=== PATIENT | male | born 1985 | race Caucasian/White ===

== ENCOUNTER 2016-09-22 13:02 | Emergency (ER) | payer OTHER ==
[2016-09-22 13:22] VITALS: BP 127/76
--- NOTE | 2016-09-22 13:46 | UC ---
Knee Pain HPI - HPI Summary HPI Summary: 31 yo twisted knee yesterday knee luis felipe pain with extension hx of intermittent knee pains - History of Current Complaint Chief Complaint: UCLowerExtremity Stated Complaint: KNEE INJURY Time Seen by Provider: 09/22/16 13:14 Hx Obtained From: Patient Onset/Duration: Sudden Onset, Lasting Days Severity Initially: Moderate Severity Currently: Moderate Location Of Injury: right knee Pain Intensity: 5 Pain Scale Used: 0-10 Numeric Character: Aching, Throbbing Aggravating Factor(s): Weight Bearing Alleviating Factor(s): Rest Associated Signs And Symptoms: Positive: Swelling Able to Bear Weight: Yes - Allergies/Home Medications Allergies/Adverse Reactions: Allergies Allergy/AdvReac Type Severity Reaction Status Date / Time Codeine Allergy Intermediate See Comment Verified 12/30/14 14:06 Penicillins Allergy Intermediate Vomiting Verified 12/30/14 14:07 Amoxicillin Allergy Mild Vomiting Verified 12/30/14 14:06 Home Medications: Home Medications Ibuprofen [Advil] 09/22/16 [History] PMH/Surg Hx/FS Hx/Imm Hx Previously Healthy: Yes Endocrine History Of: Denies: Diabetes, Thyroid Disease Cardiovascular History Of: Denies: Cardiac Disorders, Hypertension, Congestive Heart Failure Respiratory History Of: Reports: Asthma Denies: COPD GI/ History Of: Denies: Ulcer, Renal Disease - Surgical History Surgical History: Yes Surgery Procedure, Year, and Place: Edentulous, all teeth removed - Family History Known Family History: Positive: Diabetes, Respiratory Disease - copd/aSTHMA - Social History Alcohol Use: Rare Substance Use Type: None Substance Use Comment - Amount & Last Used: Pt routinely takes unprescribed VIagra recreationally Smoking Status (MU): Heavy Every Day Tobacco Smoker Type: Cigarettes Amount Used/How Often: 1 ppd Length of Time of Smoking/Using Tobacco: 16 years Have You Smoked in the Last Year: Yes Household Exposure Type: Cigarettes Review of Systems Constitutional: Negative Skin: Negative Eyes: Negative ENT: Negative Respiratory: Negative Cardiovascular: Negative Gastrointestinal: Negative Genitourinary: Negative Motor: Negative Neurovascular: Negative Musculoskeletal: Arthralgia Neurological: Negative Psychological: Negative All Other Systems Reviewed And Are Negative: Yes Physical Exam Triage Information Reviewed: Yes Appearance: Well-Appearing, No Pain Distress, Well-Nourished Vital Signs: Initial Vital Signs Temp 99.1 F 09/22/16 13:16 Pulse 95 01/05/17 13:16 Resp 18 09/22/16 13:16 BP 127/76 09/22/16 13:16 Pulse Ox 99 09/22/16 13:16 Vital Signs Reviewed: Yes Eyes: Positive: Conjunctiva Clear ENT: Positive: Hearing grossly normal. Negative: Nasal congestion, Nasal drainage, Trismus Dental: Positive: Other: - edentulous Neck: Positive: Supple, Nontender, No Lymphadenopathy Respiratory: Positive: Lungs clear, Normal breath sounds, No respiratory distress, No accessory muscle use Cardiovascular: Positive: RRR, No Murmur Musculoskeletal: Positive: Other: - see image Neurological Exam: Normal Neurological: Positive: Alert Psychological Exam: Normal Skin Exam: Normal Knee Pain Course/Dx - Differential Dx/Diagnosis Provider Diagnoses: right knee sprain Discharge - Discharge Plan Condition: Stable Disposition: HOME Patient Education Materials: Knee Sprain (ED) Referrals: Christophe Acosta MD [Medical Doctor] - 1 Week (call and make an appt) Additional Instructions: rest elevate ice knee immobilizer when wt bearing Images Front/Back of Body, Lg ([place]): 1 - medial and lateral joint line pain, no effusion, stable joint, pain with full extension, antalgic gait
--- NOTE | 2016-09-22 13:58 | RAD ---
INDICATION: Right knee injury. TECHNIQUE: 4 views of the right knee were obtained. FINDINGS: The bones are in normal alignment. No joint effusion or fracture is seen. Joint spaces appear maintained. IMPRESSION: NO EVIDENCE FOR FRACTURE.
== END 2016-09-22 14:10 | disposition home or self-care (01) ==
LOC: UCEAST 13:02
DX: S83.91XA Sprain of unspecified site of right knee, initial encounter (principal); X50.1XXA Overexertion from prolonged static or awkward postures, initial encounter; Y93.9 Activity, unspecified; Y92.9 Unspecified place or not applicable; Z88.6 Allergy status to analgesic agent; Z88.0 Allergy status to penicillin; F17.210 Nicotine dependence, cigarettes, uncomplicated
CPT/HCPCS: 99212; G0463

== ENCOUNTER → 2016-10-07 11:10 | Day surgery (SDC) | payer OTHER ==
[~2016-10-07 11:10] MED LIST: Buffered Lidocaine 1% SYR 3ML* 3 ML/SYR SYRINGE INTRADERM ONE; Buffered Lidocaine 1% SYR 3ML* 3 ML/SYR SYRINGE ONE; Bupivacaine 0.5% W/EPI SDV* 30 ML VIAL ONE; Clindamycin 900 MG IVPREMIX(* 900 MG/50 ML SDV IV ONE; Dexamethasone TAB* 4 MG ONE; Dexamethasone TAB* 4 MG PO ONE; EPINEPHrine AMP 1 MG/ML ONE; Famotidine IV* 10 MG/ML 2 ML (20 mg) IV ONE; Famotidine IV* 10 MG/ML 2 ML (20 mg) ONE; KETAMINE HCL* 50 MG/ML 10 ML VIAL ONE; Ketorolac INJ* 30 MG/ML 1 ML VIAL ONE; Lidocaine 2% PF* 10 ML AMP ONE; Midazolam* 1 MG/ML 5 ML VIAL (5 MG) ONE; Morphine INJ* 2 MG/ML 1 ML CARPUJECT IV PRN; Ondansetron INJ* 2 MG/ML VIAL ONE; PROCHLORPERAZINE INJ 5 MG/ML 2 ML VIAL IV PRN; PROCHLORPERAZINE INJ 5 MG/ML 2 ML VIAL ONE; Propofol* 10 MG/ML 20 ML BTL IV PUSH ONE; fentaNYL* 50 MCG/ML 2 ML VIAL (100 MCG VIAL) ONE; oxyCODONE/Acetamin 5/325 MG* TAB ONE; oxyCODONE/Acetamin 5/325 MG* TAB PO PRN
[2016-10-07] MEDS: fentaNYL* 50 MCG/ML 2 ML VIAL (100 MCG VIAL) IV PRN ×4 (15:26→16:09)
[2016-10-07 16:16] VITALS: BP 118/76
--- NOTE | 2016-10-09 08:09 | OP ---
OPERATIVE REPORT: DATE OF OPERATION: 10/07/16 DATE OF : 83 SURGEON: Neri Guardado MD SPORTS ATTORNEY: CHULA Pedersen ANESTHESIOLOGIST: Dr. Nabeel Herron. ANESTHESIA: General, local anesthesia. ANTIBIOSIS USED: Clindamycin 900 mg IV. PRE-OP DIAGNOSIS: Right knee lateral meniscus tear. POST-OP DIAGNOSES: 1. Right knee lateral meniscus tear. 2. Right knee anterior synovitis. OPERATIVE PROCEDURES: 1. Right knee partial lateral meniscectomy, arthroscopic. 2. Right knee anterior synovectomy, arthroscopic. 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 It appears that this was the last straw in terms of the patient needi ng to get this corrected. The patient had gone to [facility] and been given naproxen and a kne e immobilizer given the severity of his recent injury. On exam, he had lateral joint line tendernes s to palpation and a positive lateral Kadie's test. MRI demonstrated a possible lateral meniscus tear of the posterior horn. The patient opted for surgical management. IV FLUIDS: See Anesthesia note. COMPLICATIONS: None. EBL: Minimal. SPECIMENS: None. IMPLANTS: None. TOURNIQUET TIME: 38 minutes at 300 mmHg. DESCRIPTION OF PROCEDURE: A preoperative written consent was obtained. The operative extremity was marked in preoperative holding. The patient was taken back to the operating room and placed supine on the operating room table. Sedated and intubated. A proximal thigh tourniquet placed. The dist al thigh placed in circumferential thigh arias. Bed elevated through the bed drop. Prepped and dr madeline. Surgical time-out was performed. Right knee anterolateral knee arthroscopy portal was create d using standard technique. A diagnostic arthroscopy was commenced. No articular cartilage damage or meniscal tear on the patellofemoral or medial compartment. ACL present. Lateral compartment was entered. There was some fraying noted and some minimal tearing centrally about the body of the lat eral meniscus. However, there was very clearly a displaced fragment of the posterior horn, just inf erior to the remainder of the posterior horn. It looked as if this had tried to heal in place but i t looked clearly displaced. Anteromedial knee arthroscopy portal was created under direct visualizat ion. Arthroscopic shaver was used to debride the body of the lateral meniscus back to a stable rim. This did not require significant resection. The posterior horn was probed and showed a parrot beak tear that it displaced inferior to the remainder of the posterior horn. The posterior horn was chapincito rided back to a stable rim using meniscal biters as well as arthroscopic shaver. A final visualizat ion through both portals showed excellent stable meniscus, with adequate resection. Instruments and fluid removed from the knee. [id number] stitches using nylon 4.0 sutures were used to close t he skin. A local anesthetic was injected into the subcutaneous tissues. Xeroform, 4x4's, ABD, Dante bandages. DISPOSITION: Percocet, Bactrim, aspirin, followup in 10 to 14 days. [id number]/[facility] #: [id number]
== END | disposition home or self-care (01) ==
LOC: OR 11:10
PROVIDERS: ATTEND Orthopaedic Surgery
DX: S83.281A Other tear of lateral meniscus, current injury, right knee, initial encounter (principal); M65.861 Other synovitis and tenosynovitis, right lower leg; F17.200 Nicotine dependence, unspecified, uncomplicated; W19.XXXA Unspecified fall, initial encounter; Y92.89 Other specified places as the place of occurrence of the external cause
CPT/HCPCS: A9270-GY; J0171; J0780; J1885; J2001; J2250; J2405; J2704; J3010; J8540

== ENCOUNTER 2016-11-12 16:53 | Emergency (ER) | payer OTHER ==
[2016-11-12 18:34] VITALS: BP 120/73
--- NOTE | 2016-11-12 19:51 | UC ---
Ear Complaint HPI - HPI Summary HPI Summary: here to get ears irrigated he needs to do this twice a year - History of Current Complaint Chief Complaint: UCEar Stated Complaint: EARS ARE CLOGGED Time Seen by Provider: 11/12/16 19:45 Hx Obtained From: Patient Onset/Duration: Gradual Onset, Lasting Weeks, Still Present Severity Initially: Mild Severity Currently: Mild Pain Intensity: 0 - no pain, just decrease hearing Aggravating Factors: Nothing Alleviating Factors: Nothing Associated Signs/Symptoms: Positive: Hearing Loss Related History: Smoking - Allergies/Home Medications Allergies/Adverse Reactions: Allergies Allergy/AdvReac Type Severity Reaction Status Date / Time Codeine Allergy Intermediate See Comment Verified 10/06/16 13:43 Penicillins Allergy Intermediate Vomiting Verified 10/06/16 13:43 Amoxicillin Allergy Mild Vomiting Verified 10/06/16 13:43 PMH/Surg Hx/FS Hx/Imm Hx Previously Healthy: No Endocrine History Of: Denies: Diabetes - HYPOGLYCEMIC, Thyroid Disease Cardiovascular History Of: Denies: Cardiac Disorders, Hypertension, Pacemaker/ICD, Congestive Heart Failure Respiratory History Of: Reports: Asthma - PRN INHALER Denies: COPD GI/ History Of: Reports: Ulcer - HX OF IN THE PAST Denies: Renal Disease - Surgical History Surgical History: Yes Surgery Procedure, Year, and Place: FULL MOUTH EXTRACTION - Family History Known Family History: Positive: Diabetes, Respiratory Disease - copd/aSTHMA - Social History Occupation: Unemployed Lives: With Family Alcohol Use: Occasionally Substance Use Type: None Substance Use Comment - Amount & Last Used: Pt routinely takes unprescribed VIagra recreationally Smoking Status (MU): Heavy Every Day Tobacco Smoker Type: Cigarettes Amount Used/How Often: 1 ppd X 16 YEARS Length of Time of Smoking/Using Tobacco: 16 years Have You Smoked in the Last Year: Yes Household Exposure Type: Cigarettes Cessation Counseling: Counseled 3+Min - 10 Min Review of Systems Constitutional: Negative, Fever Skin: Negative Eyes: Negative ENT: Other - ears clogged with wax Respiratory: Negative Cardiovascular: Negative Gastrointestinal: Negative Genitourinary: Negative Motor: Negative Neurovascular: Negative Musculoskeletal: Negative Neurological: Negative Psychological: Negative All Other Systems Reviewed And Are Negative: Yes Physical Exam Triage Information Reviewed: Yes Appearance: Well-Appearing, No Pain Distress, Ill-Appearing - appears older than stated age Vital Signs: Initial Vital Signs Temp 98.2 F 11/12/16 18:30 Pulse 64 02/25/17 18:30 Resp 18 11/12/16 18:30 BP 120/73 11/12/16 18:30 Pulse Ox 100 11/12/16 18:30 Vital Signs Reviewed: Yes Eye Exam: Normal Eyes: Positive: Conjunctiva Clear ENT Exam: Normal ENT: Positive: Normal ENT inspection, Hearing grossly normal, Pharynx normal, Other: - bilateral cerumen impaction. Negative: Nasal congestion, Nasal drainage, Tonsillar swelling, Tonsillar exudate, Trismus, Muffled/hoarse voice Dental Exam: Other - no teeth Neck exam: Normal Neck: Positive: Supple, Nontender, No Lymphadenopathy Respiratory Exam: Normal Respiratory: Positive: Chest non-tender, Lungs clear, Normal breath sounds, No respiratory distress, No accessory muscle use Cardiovascular Exam: Normal Cardiovascular: Positive: RRR, No Murmur, Pulses Normal, Brisk Capillary Refill Musculoskeletal Exam: Normal Musculoskeletal: Positive: Strength Intact, ROM Intact, No Edema Neurological Exam: Normal Neurological: Positive: Alert, Muscle Tone Normal Psychological Exam: Normal Skin Exam: Normal Re-Evaluation - Re-Evaluation First Eval Change: Improved - tolerated irragation well -tm wnl Ear Complaint Course/Dx - Course Course Of Treatment: follow with pcp nicotine education re-check prn - Differential Dx/Diagnosis Differential Diagnosis/HQI/PQRI: Cerumen Impaction, Foreign Body, Otitis Externa , Otitis Media, URI Provider Diagnoses: B/L Cerumen impaction, -resolved, nicotine dependant Discharge - Discharge Plan Condition: Stable Disposition: AGAINST MEDICAL ADVICE Patient Education Materials: How to Stop Smoking (ED), Cerumen Impaction (ED), Cigarette Smoking and Your Health (GEN) Referrals: Sumaya Samson MD [Primary Care Provider] - If Needed
== END 2016-11-12 20:16 | disposition home or self-care (01) ==
LOC: UCEAST 16:53
DX: H61.23 Impacted cerumen, bilateral (principal); F17.210 Nicotine dependence, cigarettes, uncomplicated; Z88.5 Allergy status to narcotic agent; Z88.0 Allergy status to penicillin; Z71.6 Tobacco abuse counseling
CPT/HCPCS: 99213; G0463

== ENCOUNTER 2017-01-23 21:01 | Emergency (ER) | payer OTHER ==
[2017-01-23 21:26] VITALS: BP 131/82
--- NOTE | 2017-01-23 21:57 | RAD ---
INDICATION: Ulnar aspect pain following injury moving a washing machine earlier today. Distal radius pain with flexion and extension. COMPARISON: None. TECHNIQUE: AP, lateral, and oblique views LEFT wrist. REPORT: Normal articular alignment. No cortical disruption or suspicious trabecular irregularity to suggest fracture. Unremarkable soft tissue contours. IMPRESSION: Negative exam.
--- NOTE | 2017-01-30 14:54 | UC ---
Nevaeh Abreu Claudia, scribed for Eleazar Garcia MD on 01/23/17 at 2138 . Upper Extremity HPI - HPI Summary HPI Summary: 31 year old male presents to the [facility] with right wrist pain specifically over the ulnar side. He notes he was moving a washer/dryer when he injured it. Pt states many years ago previously injuring the same wrist. Pt states pain as 5/10 , pain aggravated with movement specifically wrist flexion. Pt denies any aggravating of alleviating factors. He denies any fever, chills. - History of Current Complaint Chief Complaint: UCUpperExtremity Stated Complaint: WRIST INJURY Time Seen by Provider: 01/23/17 21:33 Hx Obtained From: Patient Onset/Duration: Sudden Onset, Lasting Hours, Still Present Pain Scale Used: 0-10 Numeric - 5/10 Character: Dull, Aching Aggravating Factor(s): Flexion, Extension Alleviating Factor(s): Nothing Associated Signs And Symptoms: Positive: Negative - Allergies/Home Medications Allergies/Adverse Reactions: Allergies Allergy/AdvReac Type Severity Reaction Status Date / Time Codeine Allergy Intermediate See Comment Verified 10/06/16 13:43 Penicillins Allergy Intermediate Vomiting Verified 10/06/16 13:43 Amoxicillin Allergy Mild Vomiting Verified 10/06/16 13:43 PMH/Surg Hx/FS Hx/Imm Hx Previously Healthy: Yes Endocrine History Of: Denies: Diabetes - HYPOGLYCEMIC, Thyroid Disease Cardiovascular History Of: Denies: Cardiac Disorders, Hypertension, Pacemaker/ICD, Congestive Heart Failure Respiratory History Of: Reports: Asthma - PRN INHALER Denies: COPD GI/ History Of: Reports: Ulcer - HX OF IN THE PAST Denies: Renal Disease - Surgical History Surgical History: Yes Surgery Procedure, Year, and Place: FULL MOUTH EXTRACTION - Family History Known Family History: Positive: Diabetes, Respiratory Disease - copd/aSTHMA - Social History Occupation: Employed Full-time Lives: Alone Alcohol Use: Occasionally Substance Use Type: None Substance Use Comment - Amount & Last Used: Pt routinely takes unprescribed VIagra recreationally Smoking Status (MU): Heavy Every Day Tobacco Smoker Type: Cigarettes Amount Used/How Often: 1 ppd X 16 YEARS Length of Time of Smoking/Using Tobacco: 16 years Have You Smoked in the Last Year: Yes Household Exposure Type: Cigarettes Review of Systems Constitutional: Negative - NO FVER CHILLS Skin: Negative Eyes: Negative ENT: Negative Respiratory: Negative Cardiovascular: Negative Gastrointestinal: Negative Genitourinary: Negative Motor: Negative Neurovascular: Negative Musculoskeletal: Other: - RIGHT WRIST PAIN; OVER THE ULNAR SIDE Neurological: Negative Psychological: Negative All Other Systems Reviewed And Are Negative: Yes Physical Exam Triage Information Reviewed: Yes Appearance: Well-Appearing, No Pain Distress Vital Signs: Initial Vital Signs Temp 99.0 F 01/23/17 21:19 Pulse 81 01/23/17 21:19 Resp 16 01/23/17 21:19 BP 131/82 01/23/17 21:19 Pulse Ox 100 01/23/17 21:19 Vital Signs Reviewed: Yes Eyes: Positive: Conjunctiva Clear ENT: Positive: Normal ENT inspection Respiratory: Positive: Lungs clear, Normal breath sounds Cardiovascular: Positive: RRR, No Murmur Abdomen Description: Negative: Distended Musculoskeletal: Positive: Strength Intact, Other: - some mild tenderness over the ulnar styloid, no deformity and no swelling. No snuff box tenderness. Hand non tender and neuro vasc intact. Neurological: Positive: Alert, Muscle Tone Normal Psychological: Positive: Age Appropriate Behavior Skin: Negative: rashes Diagnostics - Radiology WRIST XRAY Xray Interpretation: No Acute Changes - NEGATIVE EXAM Radiology Interpretation Completed By: Radiologist Upper Extremity Course/Dx - Course Course Of Treatment: 31 yr old with wrist sprain. Splint ordered, and referral to ortho made. - Differential Dx/Diagnosis Provider Diagnoses: sprain wrist Discharge - Discharge Plan Condition: Stable Disposition: HOME Patient Education Materials: Wrist Sprain (ED) Referrals: Neri Guardado MD [Medical Doctor] - 2 Days (Please follow-up with orthopedics this week. ) The documentation as recorded by the Nevaeh nj Claudia accurately reflects the service I personally performed and the decisions made by , Eleazar Garcia MD.
== END 2017-01-23 22:17 | disposition home or self-care (01) ==
LOC: UCEAST 21:01
DX: S63.501A Unspecified sprain of right wrist, initial encounter (principal); X50.0XXA Overexertion from strenuous movement or load, initial encounter; Y93.89 Activity, other specified; Y92.9 Unspecified place or not applicable; J45.909 Unspecified asthma, uncomplicated; Z88.5 Allergy status to narcotic agent; Z88.0 Allergy status to penicillin; F17.210 Nicotine dependence, cigarettes, uncomplicated
CPT/HCPCS: 99211; G0463

== ENCOUNTER 2017-01-31 21:31 | Emergency (ER) | payer OTHER ==
[2017-01-31 21:43] VITALS: BP 146/93
--- NOTE | 2017-01-31 22:45 | UC ---
Hand/Wrist HPI - HPI Summary HPI Summary: 3 WEEKS OF INTERMITTENT BILATERAL 4TH AND 5TH FINGER NUMBNESS/TINGLING. 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 USES HIS HANDS A LOT. NO TRIGGERS HE CAN IDENTIFY. MOST OF THE TIME IT AFFECTS BOTH HANDS SIMULTANEOUSLY. - History Of Current Complaint Chief Complaint: UCUpperExtremity Stated Complaint: HAND AND ARM NUMBNESS Time Seen by Provider: 01/31/17 22:26 Hx Obtained From: Patient Onset/Duration: Sudden Onset, Lasting Weeks, Still Present Severity Initially: Moderate Severity Currently: Moderate Pain Intensity: 0 Pain Scale Used: 0-10 Numeric Character Of Pain: Burning - NUMBNESS/TINGLING Aggravating Factor(s): Other - NOTHING Alleviating: Nothing - SPONTANEOUSLY RESOLVES Associated Signs And Symptoms: Positive: Numbness/Tingling - Allergies/Home Medications Allergies/Adverse Reactions: Allergies Allergy/AdvReac Type Severity Reaction Status Date / Time Codeine Allergy Intermediate See Comment Verified 01/31/17 21:43 Penicillins Allergy Intermediate Vomiting Verified 01/31/17 21:43 Amoxicillin Allergy Mild Vomiting Verified 01/31/17 21:43 PMH/Surg Hx/FS Hx/Imm Hx Endocrine History Of: Reports: Diabetes - HYPOGLYCEMIC Denies: Thyroid Disease Cardiovascular History Of: Denies: Cardiac Disorders, Hypertension, Pacemaker/ICD, Congestive Heart Failure Respiratory History Of: Reports: Asthma - PRN INHALER Denies: COPD GI/ History Of: Reports: Ulcer - HX OF IN THE PAST Denies: Renal Disease - Surgical History Surgical History: Yes Surgery Procedure, Year, and Place: FULL MOUTH EXTRACTION - Family History Known Family History: Positive: Diabetes, Respiratory Disease - copd/aSTHMA - Social History Alcohol Use: Rare Substance Use Type: None Substance Use Comment - Amount & Last Used: Pt routinely takes unprescribed VIagra recreationally Smoking Status (MU): Heavy Every Day Tobacco Smoker Type: Cigarettes Amount Used/How Often: 1 ppd X 16 YEARS Length of Time of Smoking/Using Tobacco: 16 years Have You Smoked in the Last Year: Yes Household Exposure Type: Cigarettes Review of Systems Constitutional: Negative Skin: Negative Respiratory: Negative Cardiovascular: Negative Gastrointestinal: Negative Neurological: Paresthesia All Other Systems Reviewed And Are Negative: Yes Physical Exam Triage Information Reviewed: Yes Appearance: Well-Appearing, No Pain Distress, Well-Nourished Vital Signs: Initial Vital Signs Temp 97.2 F 01/31/17 21:40 Pulse 83 01/31/17 21:40 Resp 16 01/31/17 21:40 BP 146/93 01/31/17 21:40 Pulse Ox 100 01/31/17 21:40 Vital Signs Reviewed: Yes Eyes: Positive: Conjunctiva Clear ENT: Positive: Hearing grossly normal Neck: Positive: Supple Respiratory: Positive: No respiratory distress, No accessory muscle use Cardiovascular: Positive: Pulses Normal Abdomen Description: Positive: Soft Musculoskeletal: Positive: ROM Intact, No Edema, Other: - NEG TINELS. CAN NOT RECREATE SX WITH COMPRESSION OF ULNAR NERVE IN ULNAR GROOVE. Neurological: Positive: Alert, Other: - PT REPORTS TOTAL LACK OF SENSATION OVER ENTIRE 4TH AND 5TH FINGERS UNTIL JUST PROXIMAL TO THE MCP JOINT. DOES NOT DIFFERENTIATE BETWEEN SHARP AND DULL AND STATES HE CAN NOT EVEN FEEL THE PRESSURE. Psychological: Positive: Age Appropriate Behavior Skin: Negative: rashes Hand/Wrist Course/Dx - Differential Dx/Diagnosis Provider Diagnoses: PARESTHESIAS - BILATERAL 4TH, 5TH FINGERS Discharge - Discharge Plan Condition: Stable Disposition: HOME Patient Education Materials: Paresthesia (ED) Referrals: Jeramie Barajas MD [Medical Doctor] - As Soon As Possible Sumaya Samson MD [Primary Care Provider] - If Needed Additional Instructions: CALL DR. BARAJAS WITH [facility] TOMORROW MORNING TO SCHEDULE AN APPT FOR AN EVALUATION. GO TO THE ER WITHOUT FAIL IF SYMPTOMS WORSEN.
== END 2017-01-31 22:42 | disposition home or self-care (01) ==
LOC: UCEAST 21:31
DX: R20.2 Paresthesia of skin (principal); E11.9 Type 2 diabetes mellitus without complications; J45.909 Unspecified asthma, uncomplicated; Z88.5 Allergy status to narcotic agent; Z88.0 Allergy status to penicillin; F17.210 Nicotine dependence, cigarettes, uncomplicated
CPT/HCPCS: 99211; G0463

== ENCOUNTER 2017-04-22 23:02 | Emergency (ER) | payer OTHER ==
[2017-04-22 23:08] VITALS: BP 159/84
[2017-04-22] MEDS ORDERED: Ketorolac INJ* 60 MG/2 ML VIAL IM ONE (23:43)
--- NOTE | 2017-04-23 00:16 | ED ---
Lower Extremity - HPI Summary HPI Summary: 32M presents with left foot pain since this morning. He got up this morning and placed weight on his foot and felt a sharp pain. He denies any known injury to the area. He is not diabetic. He denies any abrasions. He denies any spreading redness or fevers. The pain radiates from his foot to his ankle. He has not taken anything for pain. - History of Current Complaint Chief Complaint: EDExtremityLower Stated Complaint: LT FT INJURY Time Seen by Provider: 04/22/17 23:35 Pain Intensity: 9 - Allergies/Home Medications Allergies/Adverse Reactions: Allergies Allergy/AdvReac Type Severity Reaction Status Date / Time Codeine Allergy Intermediate See Comment Verified 04/22/17 23:41 Penicillins Allergy Intermediate Vomiting Verified 04/22/17 23:41 Amoxicillin Allergy Mild Vomiting Verified 04/22/17 23:41 PMH/Surg Hx/FS Hx/Imm Hx Endocrine/Hematology History: Reports: Hx Diabetes - HYPOGLYCEMIC Denies: Hx Systemic Lupus Erythematosus, Hx Thyroid Disease Cardiovascular History: Reports: Other Cardiovascular Problems/Disorders - HISTORY OF TORN CHEST MUSCLE SEVERAL YEARS AGO-NO PROBLEMS NOW Denies: Hx Congestive Heart Failure, Hx Hypertension, Hx Pacemaker/ICD Respiratory History: Reports: Hx Asthma - PRN INHALER, Hx Sleep Apnea - POSSIBLE - NOT DIAGNOSED Denies: Hx Chronic Obstructive Pulmonary Disease (COPD) GI History: Reports: Hx Gastroesophageal Reflux Disease - NO MEDICATION FOR, Hx Ulcer - HX OF IN THE PAST Denies: Other GI Disorders History: Denies: Hx Dialysis, Hx Renal Disease Musculoskeletal History: Denies: Hx Rheumatoid Arthritis, Hx Scoliosis Sensory History: Reports: Hx Contacts or Glasses - GLASSES Denies: Hx Hearing Aid Opthamlomology History: Reports: Hx Contacts or Glasses - GLASSES Psychiatric History: Denies: Hx Panic Disorder - Cancer History Hx Chemotherapy: No - Surgical History Surgery Procedure, Year, and Place: FULL MOUTH EXTRACTION Hx Anesthesia Reactions: No Infectious Disease History: No Infectious Disease History: Denies: Hx Clostridium Difficile, Hx Hepatitis, Hx Human Immunodeficiency Virus (HIV), Hx of Known/Suspected MRSA, Hx Shingles, Hx Tuberculosis, Hx Known/ Suspected VRE, Hx Known/Suspected VRSA, History Other Infectious Disease, Traveled Outside the [place] in Last 30 Days - Family History Known Family History: Positive: Diabetes, Respiratory Disease - copd/aSTHMA - Social History Alcohol Use: Rare Substance Use Type: Reports: None Substance Use Comment - Amount & Last Used: Pt routinely takes unprescribed VIagra recreationally Hx Tobacco Use: Yes Smoking Status (MU): Heavy Every Day Tobacco Smoker Type: Cigarettes Amount Used/How Often: 1 ppd X 16 YEARS Length of Time of Smoking/Using Tobacco: 16 years Have You Smoked in the Last Year: Yes Review of Systems Negative: Fever Negative: Chest Pain Negative: Shortness Of Breath Positive: Myalgia - left foot pain All Other Systems Reviewed And Are Negative: Yes Physical Exam Triage Information Reviewed: Yes Vital Signs On Initial Exam: Initial Vitals Temp Pulse Resp BP Pulse Ox 98.4 F 94 16 159/84 99 04/22/17 23:06 04/22/17 23:06 04/22/17 23:06 04/22/17 23:06 04/22/17 23:06 Vital Signs Reviewed: Yes Appearance: Positive: Well-Appearing Skin: Positive: Warm, Dry Head/Face: Positive: Normal Head/Face Inspection Eyes: Positive: Normal, Conjunctiva Clear Respiratory/Lung Sounds: Positive: Clear to Auscultation, Breath Sounds Present Cardiovascular: Positive: Normal, RRR Musculoskeletal: Positive: Limited @ - left foot, Other - good pulses, capillary refill<2 secs, tender on lateral aspect of left ankle to 5th metarsal with edema there Diagnostics - Vital Signs Vital Signs Temp Pulse Resp BP Pulse Ox 04/22/17 23:07 97 F 93 16 159/84 100 04/22/17 23:06 98.4 F 94 16 159/84 99 - Laboratory Lab Statement: Any lab studies that have been ordered have been reviewed, and results considered in the medical decision making process. Lower Extremity Course/Dx - Course Course Of Treatment: 32M presents with left foot pain since this morning. He got up this morning and placed weight on his foot and felt a sharp pain. He denies any known injury to the area. He is not diabetic. He denies any abrasions. He denies any spreading redness or fevers. The pain radiates from his foot to his ankle. He has not taken anything for pain. xray read as normal. will treat as sprain. patient understands and agrees with plan - Diagnoses Differential Diagnosis/HQI/PQRI: Positive: Fracture (Closed), Sprain, Strain Provider Diagnoses: Foot pain Discharge - Discharge Plan Condition: Good Disposition: HOME Referrals: Sumaya Samson MD [Primary Care Provider] - Additional Instructions: Take Tylenol or ibuprofen every 6 hours as needed for pain Apply ice, rest, elevate Follow up with primary care physician within 5 days Return to ED if develop any new or worsening symptoms
--- NOTE | 2017-04-23 11:36 | RAD ---
Indication: Pain and inability to stand. Suspect fracture. Comparison: May 22, 2010 radiographs. Technique: AP, lateral, and oblique views LEFT foot. Report: Normal articular alignment and preserved joint spaces. Negative for fracture or radiographic stigmata of stress reaction. Unremarkable soft tissue contours. IMPRESSION: Negative radiographic exam of the LEFT foot.
--- NOTE | 2017-04-23 11:38 | RAD ---
Indication: Pain. Suspected fracture. Comparison: Foot radiographs of the same date. Technique: AP, mortise, and lateral views LEFT ankle. Report: Congruent ankle mortise. Negative for fracture. 5 mm subtle lucency at the superior lateral margin of the dome of the talus suspicious for an osteochondral lesion. Minimal osteophytosis at the talocrural joint without significant joint space narrowing or suggestion of significant joint effusion. Mild soft tissue swelling most prominent over the lateral malleolus. IMPRESSION: Probable small osteochondral lesion at the superior lateral margin of the dome of the talus. Mild soft tissue swelling.
== END 2017-04-23 00:31 | disposition home or self-care (01) ==
LOC: ED 23:02
DX: M79.672 Pain in left foot (principal); M79.1 Myalgia; F17.210 Nicotine dependence, cigarettes, uncomplicated
CPT/HCPCS: 96372; 99282; J1885

== ENCOUNTER 2018-02-11 18:12 | Emergency (ER) | payer SELFPAY ==
[2018-02-11 18:51] VITALS: BP 148/98
[2018-02-11] MEDS ORDERED: Ibuprofen TAB* 600 MG PO ONE (19:41)
[2018-02-11] MEDS ORDERED: Azithromycin TAB* 250 MG PO ONE (19:41)
--- NOTE | 2018-02-11 19:48 | UC ---
Myrna Abreu Emily, scribed for Jacky Thorpe MD on 02/11/18 at 1905 . Ear Complaint HPI - HPI Summary HPI Summary: This patient is a 32 year old M presenting to urgent care accompanied by with a chief complaint of plugged bilateral ears that began [employer]. The patient rates the pain 8/10 in severity. Symptoms aggravated by nothing. Symptoms alleviated by nothing. Patient reports cough and L ear pain. Patient denies nasal discharge and sore throat. Pt reports he cannot hear out of his left ear chronically. - History of Current Complaint Chief Complaint: UCEar Stated Complaint: EARS CLOGGED/PAIN Time Seen by Provider: 02/11/18 18:55 Hx Obtained From: Patient Onset/Duration: Sudden Onset, Lasting Days, Still Present Severity Initially: Severe Severity Currently: Severe Pain Intensity: 8 Pain Scale Used: 0-10 Numeric Aggravating Factors: Nothing Alleviating Factors: Nothing Related History: Prior ENT Surgery - Allergies/Home Medications Allergies/Adverse Reactions: Allergies Allergy/AdvReac Type Severity Reaction Status Date / Time amoxicillin Allergy Nausea And Verified 02/11/18 18:53 Vomiting codeine Allergy Nausea And Verified 02/11/18 18:53 Vomiting Penicillins Allergy Nausea And Verified 02/11/18 18:53 Vomiting Home Medications: Home Medications Albuterol HFA INHALER* [Ventolin HFA Inhaler*] 2 puff INH QID PRN 02/11/18 [ History Confirmed 02/11/18] PMH/Surg Hx/FS Hx/Imm Hx Previously Healthy: No Endocrine History: Other Other Endocrine History: Negative diabetes Respiratory History: Asthma - Surgical History Surgical History: Yes Surgery Procedure, Year, and Place: FULL MOUTH EXTRACTION, rt knee surgery - Family History Known Family History: Positive: Diabetes, Respiratory Disease - copd/aSTHMA - Social History Occupation: Employed Full-time Lives: With Family Alcohol Use: Rare Substance Use Type: None Substance Use Comment - Amount & Last Used: Pt routinely takes unprescribed VIagra recreationally Smoking Status (MU): Heavy Every Day Tobacco Smoker Type: Cigarettes Amount Used/How Often: 1 ppd X 16 YEARS Length of Time of Smoking/Using Tobacco: 16 years Have You Smoked in the Last Year: Yes Household Exposure Type: Cigarettes Review of Systems ENT: Ear Ache, Other - Positive "plugged" bilateral ears. Negative nasal discharge and sore throat Respiratory: Cough All Other Systems Reviewed And Are Negative: Yes Physical Exam - Summary Physical Exam Summary: General: well-appearing, no pain distress Skin: warm, color reflects adequate perfusion, dry Head: normal Eyes: EOMI, MAIKEL ENT: R cerumen impaction. L TM on the anterior aspect there is a daniel colored area and also a dark brown area. Ear drum appears intact, no obvious erythema or pus. Ear canal is clear. There is a question of whether or not the dark brown area is a foreign body Neck: supple, nontender Respiratory: CTA, breath sounds present Cardiovascular: RRR Abdomen: soft, nontender Bowel: present Musculoskeletal: normal, strength/ROM intact Neurological: sensory/motor intact, A&O x3 Psychological: affect/mood appropriate Triage Information Reviewed: Yes Vital Signs: Initial Vital Signs Temp 97.8 F 02/11/18 18:46 Pulse 78 02/11/18 18:46 Resp 18 02/11/18 18:46 BP 148/98 02/11/18 18:46 Pulse Ox 100 02/11/18 18:46 Vital Signs Reviewed: Yes Re-Evaluation - Re-Evaluation First Eval Re-Evaluation Time: 19:25 Change: Improved Comment: R ear canal is clear now, no more cerumen. In the L ear, the dark area appears to be behind the TM, the daniel area is 3 mm in diameter. Ear Complaint Course/Dx - Course Course Of Treatment: RT EAR WAX GONE AFTER IRRIGATION. LEFT EAR, NO FB SEEN. THERE ARE DARK AND PEARLY AREAS ON THE LEFT TM WHICH I AM UNABLE TO IDENTIFY. I DISCUSSED WITH THE PATIENT THE NEED FOR RE EVALUATION BY HIS PMD OR ENT IF THE EAR DOES NOT COMPLETELY IMPROVE. - Differential Dx/Diagnosis Provider Diagnoses: RIGHT EAR CERUMEN IMPACTION. LEFT EAR PAIN Discharge - Sign-Out/Discharge Documenting (check all that apply): Discharge/Admit/Transfer - Discharge Plan Condition: Stable Disposition: HOME Prescriptions: Azithromycin 250 mg PO DAILY #4 tablet Ibuprofen TAB* [Motrin TAB* 600 MG] 600 mg PO Q6H PRN #20 tab PRN Reason: Pain Patient Education Materials: Cerumen Impaction (ED), Earache (ED) Referrals: [facility] [Provider Group] Sumaya Samson MD [Primary Care Provider] - Additional Instructions: FOLLOW UP WITH YOUR PRIMARY CARE DOCTOR OR ENT IF YOUR EAR PAIN DOES NOT COMPLETELY IMPROVE. GET RECHECKED FOR ANY WORSENING OF YOUR CONDITION; PAIN, FEVER, YOU FEEL ILL OR QUESTIONS OR CONCERNS. - Billing Disposition and Condition Condition: STABLE Disposition: HOME The documentation as recorded by the Myrna nj Emily accurately reflects the service I personally performed and the decisions made by me, Jacky Thorpe MD.
== END 2018-02-11 19:59 | disposition home or self-care (01) ==
LOC: UCEAST 18:12
DX: H61.21 Impacted cerumen, right ear (principal); H92.02 Otalgia, left ear; R05 Cough; J45.909 Unspecified asthma, uncomplicated; Z88.5 Allergy status to narcotic agent; Z88.0 Allergy status to penicillin; F17.210 Nicotine dependence, cigarettes, uncomplicated
CPT/HCPCS: 99213; A9270-GY; G0463

== ENCOUNTER 2018-03-17 19:34 | Emergency (ER) | payer OTHER ==
[2018-03-17 19:44] VITALS: BP 137/92
--- NOTE | 2018-03-17 20:18 | RAD ---
Indication: Hand pain. Attention fourth metacarpal. 4 views of the left hand demonstrates no fracture. No other bone or joint abnormality is noted. IMPRESSION: No fracture of the left hand is noted.
--- NOTE | 2018-03-17 20:33 | UC ---
Sameer Abreu Julia, scribed for Prachi Chavarria MD on 03/17/18 at 2014 . Upper Extremity HPI - HPI Summary HPI Summary: This patient is a 32 year old M presenting to [facility] accompanied by his with a chief complaint of left hand pain after hitting his hand on a piece of metal accidentally earlier today. Pain is 6/10 on triage, but denies significant pain during evaluation. Only has pain with palpation. Patient has no other complaints or symptoms at this time. - History of Current Complaint Chief Complaint: UCUpperExtremity Stated Complaint: LEFT HAND INJURY Time Seen by Provider: 03/17/18 19:48 Hx Obtained From: Patient Onset/Duration: Sudden Onset, Lasting Hours Pain Intensity: 6 Pain Scale Used: 0-10 Numeric Location Of Pain: Is Discrete @ - left hand Aggravating Factor(s): Other - palpation - Allergies/Home Medications Allergies/Adverse Reactions: Allergies Allergy/AdvReac Type Severity Reaction Status Date / Time amoxicillin Allergy Nausea And Verified 03/17/18 19:43 Vomiting codeine Allergy Nausea And Verified 03/17/18 19:43 Vomiting Penicillins Allergy Nausea And Verified 03/17/18 19:43 Vomiting PMH/Surg Hx/FS Hx/Imm Hx Previously Healthy: Yes Other Endocrine History: hypoglycemia Other Cardiovascular History: Negative Respiratory History: Asthma Other GI/ History: Negative Other Neurological History: Negative Other Psychological History: Negative Other Cancer History: Negative - Surgical History Surgical History: Yes Surgery Procedure, Year, and Place: FULL MOUTH EXTRACTION, rt knee surgery - Family History Known Family History: Positive: Diabetes, Respiratory Disease - copd/aSTHMA - Social History Alcohol Use: Rare Substance Use Type: None Substance Use Comment - Amount & Last Used: Pt routinely takes unprescribed VIagra recreationally Smoking Status (MU): Current Every Day Smoker Type: Cigarettes Amount Used/How Often: 1 ppd Length of Time of Smoking/Using Tobacco: 16 years Have You Smoked in the Last Year: Yes Household Exposure Type: Cigarettes Review of Systems Constitutional: Negative Skin: Negative Eyes: Negative ENT: Negative Respiratory: Negative Cardiovascular: Negative Gastrointestinal: Negative Genitourinary: Negative Motor: Negative Neurovascular: Negative Musculoskeletal: Arthralgia, Myalgia - left hand pain Neurological: Negative Psychological: Negative Is Patient Immunocompromised?: No All Other Systems Reviewed And Are Negative: Yes Physical Exam - Summary Physical Exam Summary: Appearance: Well-Appearing, No Pain Distress, Well-Nourished Eyes: conjunctiva clear, no discharge ENT: Hearing grossly normal, no muffled/hoarse voice. Neck: Normal, Supple Respiratory/Lung Sounds: Lungs clear, Normal breath sounds, No respiratory distress, No accessory muscle use Cardiovascular: RRR, No murmur Bowel Sounds: Present Musculoskeletal: Left hand: no swelling or bruising noted. Tenderness to palpation is noted at the 4th metatarsal Full ROM at fingers and the wrist. Neurological: Alert, muscle tone normal Psychiatric:Normal, age appropriate behavior Skin: Normal, Warm, Dry, Normal color Triage Information Reviewed: Yes Vital Signs: Initial Vital Signs Temp 98.6 F 03/17/18 19:39 Pulse 66 03/17/18 19:39 Resp 16 03/17/18 19:39 BP 137/92 03/17/18 19:39 Pulse Ox 99 03/17/18 19:39 Vital Signs Reviewed: Yes Upper Extremity Course/Dx - Course Course Of Treatment: During the visit today, we obtained left hand Xrays - negative for any fracture. We discussed the findings and further plan. I will put him in a cock up splint for comfort and protection. Patient expressed understanding . - Differential Dx/Diagnosis Differential Diagnosis/HQI/PQRI: Contusion Provider Diagnoses: Left hand contusion. Discharge - Sign-Out/Discharge Documenting (check all that apply): Discharge/Admit/Transfer - Discharge Plan Condition: Stable Disposition: HOME Patient Education Materials: Contusion in Adults (ED) Referrals: Sumaya Samson MD [Primary Care Provider] - 2 Weeks Additional Instructions: Start using the brace Ibuprofen as needed for pain , ice 15 min at a time, 3 to 4 times./ day Follow up with your primary care doctor in 2 weeks. Return to Urgent care / ER if symptoms get worse. - Billing Disposition and Condition Condition: STABLE Disposition: Home The documentation as recorded by the Sameer nj Julia accurately reflects the service I personally performed and the decisions made by me, Prachi Chavarria MD.
== END 2018-03-17 20:25 | disposition home or self-care (01) ==
LOC: UCEAST 19:34
DX: S60.222A Contusion of left hand, initial encounter (principal); W22.8XXA Striking against or struck by other objects, initial encounter; Y93.9 Activity, unspecified; Y99.9 Unspecified external cause status; F17.210 Nicotine dependence, cigarettes, uncomplicated; Z88.5 Allergy status to narcotic agent; Z88.0 Allergy status to penicillin
CPT/HCPCS: 99212; G0463

== ENCOUNTER 2018-05-29 10:44 | Emergency (ER) | payer OTHER ==
[2018-05-29 11:07] VITALS: BP 127/87
--- NOTE | 2018-05-29 12:05 | UC ---
Back Pain HPI - HPI Summary HPI Summary: 33 y/o male presents to the urgent care c/o mid and lower back pain since MondayMay 26/2018. Pt reports he woke up this morning and pain was worse. Pain is 9/10, sharp w/o any radiation. Pt states he used to have back pain as adolescent, w/ Hx of Scoliosis. In his job he has to do a lot of heavy lifting lately. He has been wearing a back brace. Pt has taken Advil PO to alleviate symptoms. Pt denies numbness or tingling ove the lower extremities, saddle anesthesia, urinary or fecal incontinence, urinary symptoms, flank pain, abdominal pain, N/V/D. - History of Current Complaint Chief Complaint: UCBackPain Stated Complaint: BACK PAIN Time Seen by Provider: 05/29/18 12:03 Hx Obtained From: Patient Onset/Duration: Gradual Onset, Lasting Days - 4 days, Still Present, Worse Since - 2 days Timing: Constant Severity Initially: Moderate Severity Currently: Moderate Pain Intensity: 8 Pain Scale Used: 0-10 Numeric Back Pain: Is Discrete @ - mid back and lower back, Radiates To - lower back Character: Sharp, Spasmodic Aggravating Factor(s): Movement, Lifting, Bending Alleviating Factor(s): Rest, OTC Meds Associated Signs And Symptoms: Positive: Negative. Negative: Fever, Weakness, Numbness, Tingling, Abdominal Pain, Flank Pain, Bladder Incontinence, Bowel Incontinence, Weight Loss, Pain with Weight Bearing - Risk Factors AAA Risk Factors: Negative TAD Risk Factors: Negative Cauda Equina Risk Factors: Negative Epidural Abscess Risk Factors: Negative - Allergies/Home Medications Allergies/Adverse Reactions: Allergies Allergy/AdvReac Type Severity Reaction Status Date / Time amoxicillin Allergy Nausea And Verified 05/29/18 10:59 Vomiting codeine Allergy Nausea And Verified 05/29/18 10:59 Vomiting Penicillins Allergy Nausea And Verified 05/29/18 10:59 Vomiting PMH/Surg Hx/FS Hx/Imm Hx Previously Healthy: Yes Endocrine History: Dyslipidemia - diet contrle Other Endocrine History: hypoglycemia Respiratory History: Asthma - Surgical History Surgical History: Yes Surgery Procedure, Year, and Place: FULL MOUTH EXTRACTION, rt knee surgery 2015 - Family History Known Family History: Positive: Diabetes, Respiratory Disease - copd/ASTHMA - Social History Occupation: Employed Full-time Lives: With Family Alcohol Use: Rare Substance Use Type: None Substance Use Comment - Amount & Last Used: Pt routinely takes unprescribed VIagra recreationally Smoking Status (MU): Current Every Day Smoker Type: Cigarettes Amount Used/How Often: 1 ppd Length of Time of Smoking/Using Tobacco: 16 years Have You Smoked in the Last Year: Yes Household Exposure Type: Cigarettes Review of Systems Constitutional: Negative Skin: Negative Eyes: Negative ENT: Negative Respiratory: Negative Cardiovascular: Negative Gastrointestinal: Negative Genitourinary: Negative Motor: Negative Neurovascular: Negative Musculoskeletal: Decreased ROM - lower back, Other: - mid and lower back pain Neurological: Negative Psychological: Negative Is Patient Immunocompromised?: No All Other Systems Reviewed And Are Negative: Yes Physical Exam - Summary Physical Exam Summary: Vital Signs Reviewed: Yes Appearance: Well-Appearing, Well-Nourished, male sitting in the examining table w/o any apparent distress. Eyes: Positive: Conjunctiva Clear - PERRLA, EOMI. ENT: Positive: Normal ENT inspection, Hearing grossly normal, Pharynx normal, TMs normal, Uvula midline Neck: Positive: Supple, Nontender, No Lymphadenopathy Respiratory: Positive: Chest non-tender, Lungs clear, Normal breath sounds, No respiratory distress Cardiovascular: Positive: RRR, No Murmur, Pulses Normal, Brisk Capillary Refill Abdomen Description: Positive: Nontender, No Organomegaly, Soft. Negative: CVA Tenderness (R), CVA Tenderness (L) Bowel Sounds: Positive: Present Musculoskeletal: Positive: Strength Intact, BACK: Patient walked into the urgent care room with symmetric ambulation, No signs of limping, antalgic, able to bear weight. No signs of trauma, No masses palpated. Point tenderness at the level of L3-L5 and B/L paraspinal muscle spasm at the same level, No CVAT, no flank ecchymosis . No sacroiliac notch tenderness, No saddle anesthesia.ROM: limited due to pain, Straight Leg Raise: negative. Patellar reflexes: brisk, symmetric Muscle strength lower extremities. Dorsiflexion/ plantar flexion of ankles. Heel/ toe walk. Lower extremities: Femoral, popliteal, posterior tibial , and dorsalis pedis pulses WNL. Pt refuse rectal exam Neurological: Positive: Alert, Muscle Tone Normal Psychological Exam: Normal Skin Exam: Normal Triage Information Reviewed: Yes Vital Signs: Initial Vital Signs Temp 99.3 F 05/29/18 11:00 Pulse 81 05/29/18 11:00 Resp 18 05/29/18 11:00 BP 127/87 05/29/18 11:00 Pulse Ox 100 05/29/18 11:00 Back Pain Course/Dx - Course Course Of Treatment: 33 y/o male presents to the urgent care c/o mid and lower back pain since MondayMay 26/2018. Pt reports he woke up this morning and pain was worse. Pain is 9/10, sharp w/o any radiation. Pt states he used to have back pain as adolescent, w/ Hx of Scoliosis. In his job he has to do a lot of heavy lifting lately. He has been wearing a back brace. Pt has taken Advil PO to alleviate symptoms. Pt denies numbness or tingling ove the lower extremities, saddle anesthesia, urinary or fecal incontinence, urinary symptoms , flank pain, abdominal pain, N/V/D.PE: Point tenderness at the level of L3-L5 and B/L paraspinal muscle spasm at the same level, on examination. 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 Pt given Toradol IM inj for pain. Pt tolerated well IM inj given by nurse and pain decrease. Pt Rx Ibuprofen PO, flexeril PO and Prednisone PO to alleviate symptom. Patient was instructed to the f/u jeanie orthopedic from [facility] in 1 week if symptoms do not improve or worsen. Patient understands and agrees. Patient is able to ambulate freely w/o aid or limp. Plan of care was discussed with the patient and patient understands and agrees. All questions were answered at patient satisfaction. Pt left clinic hemodynamically stable. - Differential Dx/Diagnosis Differential Diagnosis/HQI/PQRI: Compressive Cord Syndrome, Fracture, Herniated Disc, Renal Colic, Strain, Sprain Provider Diagnoses: 1- Acute back strain. 2- Muscle spasm. 3-Spondylolysis at L5 Discharge - Sign-Out/Discharge Documenting (check all that apply): Patient Departure - D/C home All imaging exams completed and their final reports reviewed: Yes - Discharge Plan Condition: Stable Disposition: HOME Prescriptions: Cyclobenzaprine TAB* [Flexeril 10 MG TAB*] 10 mg PO TID PRN #21 tab PRN Reason: Spasms - Back Ibuprofen TAB* [Motrin TAB* 800 MG] 800 mg PO Q6H PRN #30 tab PRN Reason: back pain predniSONE TAB* [Deltasone 20 MG TAB*] 20 mg PO DAILY #11 tab Patient Education Materials: Low Back Strain (ED), Muscle Spasm (ED) Forms: *Work Release Referrals: [facility] [Provider Group] - 1 Week Sumaya Samson MD [Primary Care Provider] - 3 Days Additional Instructions: 1- Please take Ibuprofen PO as directed after meals for pain starting tomorrow. Take Prednisone PO as directed to alleviate symptoms 2- Take Flexeril PO as directed for muscle spasm. Please do not drive while taking the medication. 3- Wear a back support. Avoid strenuous exercise of heavy lifting. 4- Please follow up with Orthopedic Dr from [facility] Medicine or your PCP in 1 week if not improvement of symptoms, for further management. - Billing Disposition and Condition Condition: STABLE Disposition: Home
[2018-05-29] MEDS ORDERED: Ketorolac INJ* 30 MG/ML 1 ML VIAL IM ONE (12:19)
--- NOTE | 2018-05-29 12:42 | RAD ---
HISTORY: acute lower back pain COMPARISONS: July 22, 2016 VIEWS: 5 , Frontal, lateral, coned-down lateral sacral, and bilateral oblique views of the lumbar spine. FINDINGS: ALIGNMENT: The alignment is normal. VERTEBRAL BODIES: There is probable unilateral pars defect on the right at L5. JOINTS: The facet joints are normal. INTERVERTEBRAL DISCS: The intervertebral disc heights are normal. SOFT TISSUE: Unremarkable. OTHER: The pelvis is unremarkable. The lung bases are clear. IMPRESSION: PROBABLE UNILATERAL PARS DEFECT ON THE RIGHT AT L5
== END 2018-05-29 13:11 | disposition home or self-care (01) ==
LOC: UCEAST 10:44
DX: S39.012A Strain of muscle, fascia and tendon of lower back, initial encounter (principal); X58.XXXA Exposure to other specified factors, initial encounter; Y93.9 Activity, unspecified; Y92.9 Unspecified place or not applicable; M62.830 Muscle spasm of back; M47.817 Spondylosis without myelopathy or radiculopathy, lumbosacral region; Z88.5 Allergy status to narcotic agent; Z88.0 Allergy status to penicillin; F17.210 Nicotine dependence, cigarettes, uncomplicated
CPT/HCPCS: 72110; 96372; 99212; G0463; J1885

== ENCOUNTER 2018-08-18 13:40 | Emergency (ER) | payer OTHER ==
[2018-08-18 13:54] VITALS: BP 134/83
[2018-08-18] MEDS ORDERED: Tetan/Diph/Pertus SYR(Tdap)* 0.5 ML SYR(BOOSTRIX) use SYR IM ONE (15:06)
[2018-08-18] MEDS ORDERED: Silver Sulfadiazine 1%* 20 GM TOPICAL ONE (15:06)
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
[2018-08-18] MEDS ORDERED: Ibuprofen TAB* 400 MG PO ONE (15:07)
== END 2018-08-18 15:43 | disposition home or self-care (01) ==
LOC: UCEAST 13:40
DX: T23.262A Burn of second degree of back of left hand, initial encounter (principal); T31.0 Burns involving less than 10% of body surface; X19.XXXA Contact with other heat and hot substances, initial encounter; Y92.9 Unspecified place or not applicable; Z23 Encounter for immunization; Z88.5 Allergy status to narcotic agent; Z88.0 Allergy status to penicillin; Z71.6 Tobacco abuse counseling; F17.210 Nicotine dependence, cigarettes, uncomplicated
CPT/HCPCS: 90471; 90715; 99213; A9270-GY; G0463

== ENCOUNTER 2018-08-27 16:41 | Emergency (ER) | payer OTHER ==
[2018-08-27 17:02] VITALS: BP 129/92
--- NOTE | 2018-08-27 17:14 | UC ---
Back Pain HPI - HPI Summary HPI Summary: 33 yo male presents with back pain. He tells me that he was seen a few months ago for back pain and has been attending PT with good relief, but went to schedule future appointments today and they notified him that his referral is going to "" and he needs a new referral to continue to attend PT. He takes flexeril and ibuprofen for his pain with good relief. Denies radiation of pain, numbness, tingling, saddle anesthesia, or loss of bowel/bladder function. No injury. - History of Current Complaint Chief Complaint: UCBackPain Stated Complaint: PT REFERRAL Hx Obtained From: Patient Timing: Constant Severity Initially: Mild Severity Currently: Mild Pain Intensity: 4 Pain Scale Used: 0-10 Numeric - Allergies/Home Medications Allergies/Adverse Reactions: Allergies Allergy/AdvReac Type Severity Reaction Status Date / Time amoxicillin Allergy Nausea And Verified 08/27/18 17:02 Vomiting codeine Allergy Nausea And Verified 08/27/18 17:02 Vomiting Penicillins Allergy Nausea And Verified 08/27/18 17:02 Vomiting PMH/Surg Hx/FS Hx/Imm Hx Respiratory History: Asthma - Surgical History Surgical History: Yes Surgery Procedure, Year, and Place: FULL MOUTH EXTRACTION, rt knee surgery 2016 - Family History Known Family History: Positive: Diabetes, Respiratory Disease - copd/ASTHMA - Social History Occupation: Employed Full-time Lives: With Family Alcohol Use: Rare Substance Use Type: None Substance Use Comment - Amount & Last Used: Pt routinely takes unprescribed VIagra recreationally Smoking Status (MU): Heavy Every Day Tobacco Smoker Type: Cigarettes Amount Used/How Often: 1 ppd Length of Time of Smoking/Using Tobacco: 16 years Have You Smoked in the Last Year: Yes Household Exposure Type: Cigarettes Review of Systems All Other Systems Reviewed And Are Negative: Yes Constitutional: Positive: Negative Skin: Positive: Negative Respiratory: Positive: Negative Cardiovascular: Positive: Negative Neurovascular: Positive: Negative Musculoskeletal: Positive: Other: - LBP Neurological: Positive: Negative Psychological: Positive: Negative Physical Exam - Summary Physical Exam Summary: GENERAL: NAD. WDWN. No pain distress. SKIN: No rashes, sores, lesions, or open wounds. NECK: Supple. FROM. Nontender. No lymphadenopathy. CHEST: CTAB. No r/r/w. No accessory muscle use. Breathing comfortably and in no distress. CV: RRR. Without m/r/g. Pulses intact. Cap refill <2seconds MSK: TTP over lumbar paraspinal muscles. Pain with flexion and extension of spine. Weak Positive SLR b/l for low back pain without radiation. Strength 5/5 B /L LEs including dorsiflexion and plantar flexion. FROM B/L LEs. No edema. NEURO: Alert. Sensations intact B/L LEs L3-S1. PSYCH: Age appropriate behavior. Triage Information Reviewed: Yes Vital Signs: Initial Vital Signs Temp 98.9 F 08/27/18 16:59 Pulse 77 08/27/18 16:59 Resp 18 08/27/18 16:59 BP 129/92 08/27/18 16:59 Pulse Ox 100 08/27/18 16:59 Vital Signs Reviewed: Yes Back Pain Course/Dx - Course Course Of Treatment: He tells me that he is progressing well with PT and would like to continue this for his back pain. Will renew his PT referral and advised to f/u with PCP for continued management. - Differential Dx/Diagnosis Provider Diagnosis: Low back pain Discharge - Sign-Out/Discharge Documenting (check all that apply): Patient Departure All imaging exams completed and their final reports reviewed: No Studies - Discharge Plan Condition: Stable Disposition: HOME Patient Education Materials: Back Pain (ED), Lower Back Exercises (ED) Referrals: Sumaya Samson MD [Primary Care Provider] - Additional Instructions: If you develop a fever, shortness of breath, chest pain, new or worsening symptoms - please call your PCP or go to the ED. Please schedule a follow up appointment with physical therapy - Billing Disposition and Condition Condition: STABLE Disposition: Home
== END 2018-08-27 17:30 | disposition home or self-care (01) ==
LOC: UCEAST 16:41
DX: M54.5 Low back pain (principal); Z88.0 Allergy status to penicillin; Z88.5 Allergy status to narcotic agent; F17.210 Nicotine dependence, cigarettes, uncomplicated
CPT/HCPCS: 99211; G0463

== ENCOUNTER → 2018-10-13 20:46 | Emergency (ER) | payer OTHER ==
[~2018-10-13 20:46] MED LIST changes: +Aspirin 81 mg CHEW TAB* 81 MG TAB.CHEW PO ONE; -Buffered Lidocaine 1% SYR 3ML* 3 ML/SYR SYRINGE INTRADERM ONE; -Buffered Lidocaine 1% SYR 3ML* 3 ML/SYR SYRINGE ONE; -Bupivacaine 0.5% W/EPI SDV* 30 ML VIAL ONE; -Clindamycin 900 MG IVPREMIX(* 900 MG/50 ML SDV IV ONE; -Dexamethasone TAB* 4 MG ONE; -Dexamethasone TAB* 4 MG PO ONE; -EPINEPHrine AMP 1 MG/ML ONE; -Famotidine IV* 10 MG/ML 2 ML (20 mg) IV ONE; -Famotidine IV* 10 MG/ML 2 ML (20 mg) ONE; -KETAMINE HCL* 50 MG/ML 10 ML VIAL ONE; -Ketorolac INJ* 30 MG/ML 1 ML VIAL ONE; -Lidocaine 2% PF* 10 ML AMP ONE; -Midazolam* 1 MG/ML 5 ML VIAL (5 MG) ONE; -Morphine INJ* 2 MG/ML 1 ML CARPUJECT IV PRN; -Ondansetron INJ* 2 MG/ML VIAL ONE; -PROCHLORPERAZINE INJ 5 MG/ML 2 ML VIAL IV PRN; -PROCHLORPERAZINE INJ 5 MG/ML 2 ML VIAL ONE; -Propofol* 10 MG/ML 20 ML BTL IV PUSH ONE; -fentaNYL* 50 MCG/ML 2 ML VIAL (100 MCG VIAL) ONE; -oxyCODONE/Acetamin 5/325 MG* TAB ONE; -oxyCODONE/Acetamin 5/325 MG* TAB PO PRN
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
[2018-10-13 22:03] VITALS: BP 147/98
== END | disposition short-term general hospital (02) ==
LOC: UCEAST 20:46
DX: R07.89 Other chest pain (principal); R06.02 Shortness of breath; Z88.5 Allergy status to narcotic agent; Z88.0 Allergy status to penicillin; Z82.49 Family history of ischemic heart disease and other diseases of the circulatory system; Z83.3 Family history of diabetes mellitus; Z82.5 Family history of asthma and other chronic lower respiratory diseases; F17.210 Nicotine dependence, cigarettes, uncomplicated
CPT/HCPCS: 99213; A9270-GY; G0463

== ENCOUNTER 2019-01-07 10:10 | Emergency (ER) | payer OTHER ==
[2019-01-07 10:37] VITALS: BP 134/84
[2019-01-07] MEDS ORDERED: Albuterol/Ipratropium NEB.SOL* Albuterol 2.5 MG/Ipratropium 0.5 MG 3 ML INH ONE (12:08)
--- NOTE | 2019-01-07 12:18 | UC ---
Shortness of Breath HPI - HPI Summary HPI Summary: 33 year old male with h/o 1 PPD smoking presents with cough, non-productive, lung congestion, tactile fevers, nasal congestions, STOKES. Denies ear aches, sore throat. Has had h/o SOB in past with infections, usualyl uses fathers nebulizer with good relief, requesting treatment today. HAs albuterol inhaler at home, working well, needs refill. - History of Current Complaint Chief Complaint: UCGeneralIllness Stated Complaint: RESP ISSUE Time Seen by Provider: 01/07/19 11:56 Hx Obtained From: Patient Onset/Duration: Sudden Onset, Lasting Days - monday Timing: Constant Current Severity: Moderate Dyspnea At: Exertion Aggrevating Factors: Deep Breaths Alleviating Factors: Bronchodilators Associated Signs & Symptoms: Positive: Cough (Nonproductive), Chest Pain w/Cough , Nasal Congestion Related History: Similar Episode - Allergy/Home Medications Allergies/Adverse Reactions: Allergies Allergy/AdvReac Type Severity Reaction Status Date / Time amoxicillin Allergy Nausea And Verified 01/07/19 10:37 Vomiting codeine Allergy Nausea And Verified 01/07/19 10:37 Vomiting Penicillins Allergy Nausea And Verified 01/07/19 10:37 Vomiting PMH/Surg Hx/FS Hx/Imm Hx Previously Healthy: Yes - + TOB use - Surgical History Surgical History: Yes Surgery Procedure, Year, and Place: FULL MOUTH EXTRACTION, rt knee surgery 2015 - Family History Known Family History: Positive: Cardiac Disease, Diabetes, Respiratory Disease - copd/ASTHMA - Social History Alcohol Use: Occasionally Substance Use Type: Marijuana Substance Use Comment - Amount & Last Used: USED 10/12/18 PM Smoking Status (MU): Current Every Day Smoker Type: Cigarettes Amount Used/How Often: 1 ppd Length of Time of Smoking/Using Tobacco: 16 years Have You Smoked in the Last Year: Yes Household Exposure Type: Cigarettes Review of Systems All Other Systems Reviewed And Are Negative: Yes Constitutional: Positive: Fever, Chills, Fatigue ENT: Positive: Sore Throat, Sinus Congestion. Negative: Ear Ache, Nasal Discharge Respiratory: Positive: Shortness Of Breath, Cough Is Patient Immunocompromised?: No Physical Exam Triage Information Reviewed: Yes Appearance: No Pain Distress, Well-Nourished, Ill-Appearing - moderate Vital Signs: Initial Vital Signs Temp 98 F 01/07/19 10:34 Pulse 86 01/07/19 10:34 Resp 17 01/07/19 10:34 BP 134/84 01/07/19 10:34 Pulse Ox 99 01/07/19 10:34 Vital Signs Reviewed: Yes Eyes: Positive: Conjunctiva Clear ENT: Positive: Pharyngeal erythema - mild, no exudates, TMs normal, Uvula midline. Negative: TM bulging, TM dull, TM red, Tonsillar swelling, Tonsillar exudate, Sinus tenderness Neck: Positive: Supple, Nontender, No Lymphadenopathy. Negative: Nuchal Rigidity Respiratory: Positive: Chest non-tender, Lungs clear, Normal breath sounds, No respiratory distress, No accessory muscle use. Negative: Respiratory distress, Decreased breath sounds, Crackles, Rhonchi, Stridor, Wheezing Cardiovascular: Positive: RRR, No Murmur Abdomen Description: Positive: Nontender, No Organomegaly, Soft Neurological Exam: Normal Psychological Exam: Normal Skin Exam: Normal Shortness of Breath Dx - Course Course Of Treatment: nebulizer treatment given, ABX and prednisone for symptoms, follow up with primary physician or go to ER with worsening symptoms Stop smoking - Differential Dx/Diagnosis Differential Diagnosis/HQI/PQRI: Bronchitis, Pneumonia Provider Diagnosis: Bronchitis Discharge - Sign-Out/Discharge Documenting (check all that apply): Patient Departure All imaging exams completed and their final reports reviewed: No Studies - Discharge Plan Condition: Fair Disposition: HOME Prescriptions: Albuterol HFA INHALER* [Ventolin HFA Inhaler*] 1 - 2 puff INH Q4H PRN #1 mdi PRN Reason: shortness of breath, cough Albuterol/Ipratropium NEB.JOSEPHINE* [Duoneb (Albuterol 2.5 MG/Ipratropium 0.5 MG)] 1 neb INH Q4H #45 neb.soln DOXYcycline CAP(*) [DOXYcycline 100MG CAP(*)] 100 mg PO BID #14 cap methylPREDNISolone [Medrol Dosepak 4 MG*] 4 mg PO .SEE CRISTIN INSTRUCTION #1 cristin Nebulizer [Aeroeclipse II] 1 each INH Q4H PRN #1 each PRN Reason: shortness of breath, cough Patient Education Materials: Acute Bronchitis (ED) Forms: *Work Release Referrals: Sumaya Samson MD [Primary Care Provider] - Additional Instructions: - Do not use albuterol inhaler and nebulizer within 4 hours of each other - ANtibiotics as directed - Steroids at directed - Albuterol inhaler as needed every 4 hours - Nebulizer with duoneb medication sent - Work note given - Stop smoking - motrin/ tylenol as needed for symptoms - Billing Disposition and Condition Condition: FAIR Disposition: Home
== END 2019-01-07 13:14 | disposition home or self-care (01) ==
LOC: UCEAST 10:10
DX: J40 Bronchitis, not specified as acute or chronic (principal); Z88.5 Allergy status to narcotic agent; Z88.0 Allergy status to penicillin; F17.210 Nicotine dependence, cigarettes, uncomplicated
CPT/HCPCS: 99212; A9270-GY; G0463

== ENCOUNTER → 2019-01-08 03:29 | Emergency (ER) | payer OTHER ==
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
[2019-01-08 04:23] LABS: ABS Basophils 0 10^3/ul (0-0.2); ABS Eosinophils 0 10^3/ul (0-0.6); ABS Lymphocytes 1.1 10^3/ul (1.0-4.8); ABS Monocytes 0.6 10^3/ul (0-0.8); ABS Nucleated RBC 0 10^3/ul; Eosinophil % 0 %; Hematocrit 40 % (36-46); Hemoglobin 13.8 g/dL (14.0-18.0); Lymphocyte % 12.6 %; Mean Corpuscular HGB Conc 35 g/dL (31-36); Mean Corpuscular Hemoglobin 31 pg (27-31); Mean Corpuscular Volume 91 fL (80-94); Nucleated Red Blood Cells % 0; Platelet Count 242 10^3/uL (150-450); Red Blood Count 4.38 10^6 /uL (4.18-5.48); Red Cell Distribution Width 14 % (10.5-15); White Blood Count 8.7 10^3/uL (3.5-10.8)
[2019-01-08 05:04] LABS: ALT 27 U/L (7-52); AST 23 U/L (13-39); Albumin/Globulin Ratio 1.4 (1-3); Alkaline Phosphatase 67 U/L (34-104); Anion Gap 8 mmol/L (2-11); BUN/Creatinine Ratio 11.4 (8-20); Blood Urea Nitrogen 10 mg/dL (6-24); CO2 Carbon Dioxide 23 mmol/L (22-32); Calcium 9.3 mg/dL (8.6-10.3); Chloride 105 mmol/L (101-111); EGFR Non-African American 99.1 (>60); Globulin 2.8 g/dL (2-4); Glucose 157 mg/dL (70-100); Potassium 4.2 mmol/L (3.5-5.0); Sodium 136 mmol/L (135-145); Total Protein 6.8 g/dL (6.4-8.9)
[2019-01-08 05:22] LABS: Troponin I 0.04 ng/mL (<0.04)
[2019-01-08 05:37] VITALS: BP 136/84
== END | disposition home or self-care (01) ==
LOC: ED 03:29
DX: J20.9 Acute bronchitis, unspecified (principal); R00.2 Palpitations; J45.909 Unspecified asthma, uncomplicated; K21.9 Gastro-esophageal reflux disease without esophagitis; Z88.5 Allergy status to narcotic agent; Z88.0 Allergy status to penicillin; F17.210 Nicotine dependence, cigarettes, uncomplicated
CPT/HCPCS: 36415; 71046; 80053; 84484; 85025; 85379; 87040; 93005; 99283

== ENCOUNTER 2019-02-08 18:51 | Emergency (ER) | payer OTHER ==
[2019-02-08 19:03] VITALS: BP 125/75
--- NOTE | 2019-02-08 19:35 | UC ---
Ear Complaint HPI - HPI Summary HPI Summary: 33-year-old male comes in with a chief complaint of both ears feeling plugged with wax. Patient reports he's had cerumen in his ears before any comes here twice a year to get him cleaned out. No pain. No fevers no chills no upper respiratory tract infection symptoms. - History of Current Complaint Chief Complaint: UCEar Stated Complaint: EAR CLOGGED Time Seen by Provider: 02/08/19 19:19 Pain Intensity: 6 - Allergies/Home Medications Allergies/Adverse Reactions: Allergies Allergy/AdvReac Type Severity Reaction Status Date / Time ondansetron Allergy Intermediate Vomiting Verified 02/08/19 19:03 amoxicillin Allergy Nausea And Verified 02/08/19 19:03 Vomiting codeine Allergy Nausea And Verified 02/08/19 19:03 Vomiting Penicillins Allergy Nausea And Verified 02/08/19 19:03 Vomiting PMH/Surg Hx/FS Hx/Imm Hx Previously Healthy: Yes Respiratory History: Asthma - Surgical History Surgical History: Yes Surgery Procedure, Year, and Place: FULL MOUTH EXTRACTION, rt knee surgery 2015 - Family History Known Family History: Positive: Cardiac Disease, Diabetes, Respiratory Disease - copd/ASTHMA - Social History Alcohol Use: Occasionally Substance Use Type: Marijuana Substance Use Comment - Amount & Last Used: USED 10/12/18 PM Smoking Status (MU): Current Every Day Smoker Type: Cigarettes Amount Used/How Often: 1 ppd Length of Time of Smoking/Using Tobacco: 16 years Have You Smoked in the Last Year: Yes Household Exposure Type: Cigarettes Review of Systems All Other Systems Reviewed And Are Negative: Yes Constitutional: Positive: Negative Skin: Positive: Negative Eyes: Positive: Negative ENT: Positive: Other - SEE HPI Respiratory: Positive: Negative Cardiovascular: Positive: Negative Gastrointestinal: Positive: Negative Motor: Positive: Negative Neurovascular: Positive: Negative Musculoskeletal: Positive: Negative Neurological: Positive: Negative Psychological: Positive: Negative Is Patient Immunocompromised?: No Physical Exam Triage Information Reviewed: Yes Appearance: Well-Appearing, No Pain Distress, Well-Nourished Vital Signs: Initial Vital Signs Temp 99.3 F 02/08/19 18:59 Pulse 90 02/08/19 18:59 Resp 16 02/08/19 18:59 BP 125/75 02/08/19 18:59 Pulse Ox 100 02/08/19 18:59 Vital Signs Reviewed: Yes Eye Exam: Normal Eyes: Positive: Conjunctiva Clear ENT: Positive: Other - CERUMEN ON THE FLOOR OF BOTH EAR CANALS Neck: Positive: Supple Respiratory: Positive: No respiratory distress Musculoskeletal Exam: Normal Musculoskeletal: Positive: Strength Intact, ROM Intact Neurological Exam: Normal Neurological: Positive: Alert, Muscle Tone Normal Psychological Exam: Normal Psychological: Positive: Age Appropriate Behavior Skin Exam: Normal Ear Complaint Course/Dx - Differential Dx/Diagnosis Provider Diagnosis: Excessive cerumen in both ear canals Discharge - Sign-Out/Discharge Documenting (check all that apply): Patient Departure All imaging exams completed and their final reports reviewed: No Studies - Discharge Plan Condition: Stable Disposition: HOME Patient Education Materials: Cerumen Impaction (ED) Referrals: Sumaya Samson MD [Primary Care Provider] - Additional Instructions: FOLLOW UP WITH YOUR DOCTOR IF NOT COMPLETELY IMPROVED. GET RECHECKED SOONER IF YOUR CONDITION WORSENS OR ANY QUESTIONS OR CONCERNS. - Billing Disposition and Condition Condition: STABLE Disposition: Home
== END 2019-02-08 20:10 | disposition home or self-care (01) ==
LOC: UCEAST 18:51
DX: H93.8X3 Other specified disorders of ear, bilateral (principal); J45.909 Unspecified asthma, uncomplicated; F17.210 Nicotine dependence, cigarettes, uncomplicated; Z88.8 Allergy status to other drugs, medicaments and biological substances; Z88.0 Allergy status to penicillin; Z88.5 Allergy status to narcotic agent
CPT/HCPCS: 99213; G0463

== ENCOUNTER 2019-07-09 16:04 | Emergency (ER) | payer OTHER ==
[2019-07-09] MEDS ORDERED: EPINEPHRINE 1 MG/ML 1 ML VIAL IM ONE (16:14)
[2019-07-09] MEDS ORDERED: methylPREDNISolone 125 MG* 2 ML VIAL IV ONE (16:15)
[2019-07-09] MEDS ORDERED: Ipratropium 0.5MG/2.5ML NEB* 0.5 MG/2.5 ML NEB.SOLN INH ONE (16:15)
[2019-07-09] MEDS ORDERED: NS 0.9% 1000 ML** 1,000 ML BOLUS ONE (16:15)
[2019-07-09] MEDS ORDERED: Albuterol 2.5 MG/3 ML NEB.SOL* (0.083%) INH ONE (16:15)
[2019-07-09] MEDS ORDERED: Famotidine IV* 10 MG/ML 2 ML (20 mg) IV SLOW PU ONE (16:16)
--- NOTE | 2019-07-09 16:17 | UC ---
Allergic Reaction HPI - HPI Summary HPI Summary: 34 yo male with hx of anaphlaxis to bee sting was stung on right hand about 3 PM took 50 mg of benadryl now with some throat tightness and wheezing/dyspnea itching at sting site and neck has had 5 or 6 similar reactions in past - History of Current Complaint Stated Complaint: BEE STING Time Seen by Provider: 07/09/19 16:14 Hx Obtained From: Patient Onset/Duration: Gradual Onset Severity Initially: Mild Severity Currently: Moderate Pain Intensity: 2 Pain Scale Used: 0-10 Numeric Aggravating Factor(s): Nothing Alleviating Factor(s): Nothing Associated Signs And Symptoms: Positive: Cough Wheezing, Difficulty Breathing, Throat Tightening. Negative: Abdominal Pain, Chest Pain, Diaphoresis, Hoarseness, Lightheadedness, Nausea, Rash, Syncope, Vomiting - Related Hx Possible Reaction To: Insect - Allergies/Home Medications Allergies/Adverse Reactions: Allergies Allergy/AdvReac Type Severity Reaction Status Date / Time ondansetron Allergy Intermediate Vomiting Verified 07/09/19 16:25 amoxicillin Allergy Nausea And Verified 07/09/19 16:25 Vomiting codeine Allergy Nausea And Verified 07/09/19 16:25 Vomiting Penicillins Allergy Nausea And Verified 07/09/19 16:25 Vomiting PMH/Surg Hx/FS Hx/Imm Hx Previously Healthy: Yes Respiratory History: Asthma - Surgical History Surgical History: Yes Surgery Procedure, Year, and Place: FULL MOUTH EXTRACTION, rt knee surgery 2015 - Family History Known Family History: Positive: Cardiac Disease, Diabetes, Respiratory Disease - copd/ASTHMA - Social History Alcohol Use: Occasionally Substance Use Type: Marijuana Substance Use Comment - Amount & Last Used: pt denies using Smoking Status (MU): Current Every Day Smoker Type: Cigarettes Amount Used/How Often: 1 ppd Length of Time of Smoking/Using Tobacco: 16 years Have You Smoked in the Last Year: Yes Household Exposure Type: Cigarettes Review of Systems All Other Systems Reviewed And Are Negative: Yes Constitutional: Positive: Negative Skin: Positive: Negative Eyes: Positive: Negative ENT: Positive: Other - throat tightness Respiratory: Positive: Shortness Of Breath, Other - wheezing Cardiovascular: Positive: Negative Gastrointestinal: Positive: Negative Genitourinary: Positive: Negative Motor: Positive: Negative Neurovascular: Positive: Negative Musculoskeletal: Positive: Negative Neurological: Positive: Negative Psychological: Positive: Negative Physical Exam Triage Information Reviewed: Yes Appearance: Well-Appearing, No Pain Distress, Well-Nourished Vital Signs Reviewed: Yes Eyes: Positive: Conjunctiva Clear ENT: Positive: Hearing grossly normal, Uvula midline. Negative: Nasal congestion, Nasal drainage, Trismus, Muffled voice, Hoarse voice Neck: Positive: Supple, Nontender Respiratory: Positive: Wheezing. Negative: Normal breath sounds, Stridor Cardiovascular: Positive: RRR, No Murmur Musculoskeletal: Positive: ROM Intact, No Edema Neurological: Positive: Alert Psychological Exam: Normal Skin Exam: Normal Re-Evaluation - Re-Evaluation First Eval Re-Evaluation Time: 16:45 Change: Improved - no wheezing /some mild itching/no throat tightness Second Eval Re-Evaluation Time: 17:55 Change: Improved - feels back to normal Allergic Reaction Course/Dx - Differential Dx/Diagnosis Provider Diagnosis: Anaphylactic reaction Discharge ED - Sign-Out/Discharge Documenting (check all that apply): Patient Departure All imaging exams completed and their final reports reviewed: No Studies - Discharge Plan Condition: Improved Disposition: HOME Prescriptions: EPINEPHrine [Epipen 2-Kaden] 0.3 mg IM ONCE #1 inj predniSONE TAB* [Deltasone 20 MG TAB*] 40 mg PO DAILY #8 tab Patient Education Materials: Insect Bite or Sting (ED) Referrals: Pierre Em MD [Medical Doctor] - 2 Weeks Sumaya Samson MD [Primary Care Provider] - If Needed Additional Instructions: I suggest you take benadryl 25 mg two tablets every 4 hours x 3 doses use your inhaler 2 puffs 4x day for 5 days I suggest you see an clinical support associate -they may be able to desensitize you - Billing Disposition and Condition Condition: IMPROVED Disposition: Home
[2019-07-09 17:05] VITALS: BP 134/72
== END 2019-07-09 17:57 | disposition home or self-care (01) ==
LOC: UCEAST 16:04
DX: T63.441A Toxic effect of venom of bees, accidental (unintentional), initial encounter (principal); T78.2XXA Anaphylactic shock, unspecified, initial encounter; F17.210 Nicotine dependence, cigarettes, uncomplicated; R05 Cough; Z88.8 Allergy status to other drugs, medicaments and biological substances; Z88.0 Allergy status to penicillin; Z88.5 Allergy status to narcotic agent; W57.XXXA Bitten or stung by nonvenomous insect and other nonvenomous arthropods, initial encounter; Y92.9 Unspecified place or not applicable
CPT/HCPCS: 96360; 96372; 96374; 96375; 99213; G0463; J2930

== ENCOUNTER 2019-08-10 22:37 | Emergency (ER) | payer OTHER ==
--- NOTE | 2019-08-11 00:15 | ED ---
Back Pain - HPI Summary HPI Summary: Patient complains of tailbone pain 3 days. Pain with sitting and lying down flat on his back. Denies trauma, known injury, history of same. The states he has a history of cyst in the area 9 years ago. Denies fever, cough, sore throat , CP, SOB, N/V/D, abdominal pain, change in urine, change in BM, imbalance, loss of sensation or function in bilateral lower extremities. Medical history is none. - History of Current Complaint Chief Complaint: EDBackInjuryPain Stated Complaint: PAINFUL TAILBONE PER PT Time Seen by Provider: 08/11/19 00:13 Hx Obtained From: Patient Onset/Duration: Gradual Onset, Lasting Days Onset/Duration: Started Days Ago Timing: Constant Back Pain Location: Is Discrete @ Severity Initially: Moderate Severity Currently: Moderate Pain Intensity: 8 Pain Scale Used: 0-10 Numeric Character: Aching, Throbbing Aggravating Symptom(s): Other Alleviating Symptom(s): Position Associated Signs And Symptoms: Positive: Negative - Allergies/Home Medications Allergies/Adverse Reactions: Allergies Allergy/AdvReac Type Severity Reaction Status Date / Time ondansetron Allergy Intermediate Vomiting Verified 08/11/19 00:05 amoxicillin Allergy Nausea And Verified 08/11/19 00:05 Vomiting codeine Allergy Nausea And Verified 08/11/19 00:05 Vomiting Penicillins Allergy Nausea And Verified 08/11/19 00:05 Vomiting Home Medications: Home Medications NK [No Home Medications Reported] 08/11/19 [History Confirmed 08/11/19] PMH/Surg Hx/FS Hx/Imm Hx Endocrine/Hematology History: Denies: Hx Diabetes, Hx Systemic Lupus Erythematosus, Hx Thyroid Disease Cardiovascular History: Reports: Other Cardiovascular Problems/Disorders - HISTORY OF TORN CHEST MUSCLE SEVERAL YEARS AGO-NO PROBLEMS NOW Denies: Hx Congestive Heart Failure, Hx Hypertension, Hx Pacemaker/ICD Respiratory History: Reports: Hx Asthma - PRN INHALER, Hx Sleep Apnea - POSSIBLE - NOT DIAGNOSED Denies: Hx Chronic Obstructive Pulmonary Disease (COPD) GI History: Reports: Hx Gastroesophageal Reflux Disease - NO MEDICATION FOR Denies: Hx Ulcer, Other GI Disorders History: Denies: Hx Dialysis, Hx Renal Disease Musculoskeletal History: Reports: Hx Scoliosis Denies: Hx Rheumatoid Arthritis Sensory History: Reports: Hx Contacts or Glasses - GLASSES Denies: Hx Hearing Aid Opthamlomology History: Reports: Hx Contacts or Glasses - GLASSES EENT History: Denies: Hx Deafness Neurological History: Reports: Other Neuro Impairments/Disorders - slipoped disc low bacjk Psychiatric History: Denies: Hx Panic Disorder - Cancer History Hx Chemotherapy: No - Surgical History Surgery Procedure, Year, and Place: FULL MOUTH EXTRACTION, rt knee surgery 2016 Hx Anesthesia Reactions: No Infectious Disease History: No Infectious Disease History: Denies: Hx Clostridium Difficile, Hx Hepatitis, Hx Human Immunodeficiency Virus (HIV), Hx of Known/Suspected MRSA, Hx Shingles, Hx Tuberculosis, Hx Known/ Suspected VRE, Hx Known/Suspected VRSA, History Other Infectious Disease, Traveled Outside the [place] in Last 30 Days - Family History Known Family History: Positive: Cardiac Disease, Diabetes, Respiratory Disease - copd/ASTHMA - Social History Alcohol Use: Occasionally Hx Substance Use: Yes Substance Use Type: Reports: None Substance Use Comment - Amount & Last Used: pt denies using Hx Tobacco Use: Yes Smoking Status (MU): Current Every Day Smoker Type: Cigarettes Amount Used/How Often: 1 ppd Length of Time of Smoking/Using Tobacco: 16 years Have You Smoked in the Last Year: Yes Review of Systems Constitutional: Negative Eyes: Negative ENT: Negative Cardiovascular: Negative Respiratory: Negative Gastrointestinal: Negative Genitourinary: Negative Musculoskeletal: Other Skin: Negative Neurological: Negative Psychological: Normal All Other Systems Reviewed And Are Negative: Yes Physical Exam - Summary Physical Exam Summary: No erythema, ecchymosis, deformity, swelling, mass noted to lower back. Mild bony point tenderness along the coccyx and gluteal cleft. Otherwise normal exam of back and gluteus muscles. PMS intact distally bilateral lower extremities. Triage Information Reviewed: Yes Vital Signs On Initial Exam: Initial Vitals Temp Pulse Resp BP Pulse Ox 99.3 F 101 18 144/117 98 08/10/19 22:43 08/10/19 22:43 08/10/19 22:43 08/10/19 22:43 08/10/19 22:43 Vital Signs Reviewed: Yes Appearance: Positive: Well-Appearing Skin: Positive: Warm Head/Face: Positive: Normal Head/Face Inspection Eyes: Positive: Normal Neck: Positive: Supple Respiratory/Lung Sounds: Positive: Clear to Auscultation Cardiovascular: Positive: Normal Abdomen Description: Positive: Nontender Musculoskeletal: Positive: Normal Neurological: Positive: Normal Psychiatric: Positive: Normal AVPU Assessment: Alert - [place] Coma Scale Best Eye Response: 4 - Spontaneous Best Motor Response: 6 - Obeys Commands Best Verbal Response: 5 - Oriented Coma Scale Total: 15 Procedures - Sedation Patient Received Moderate/Deep Sedation with Procedure: No Diagnostics - Vital Signs Vital Signs Temp Pulse Resp BP Pulse Ox 08/11/19 00:00 81 97 08/10/19 23:54 71 97 08/10/19 23:53 71 124/67 97 08/10/19 22:43 99.3 F 101 18 144/117 98 - Laboratory Lab Statement: Any lab studies that have been ordered have been reviewed, and results considered in the medical decision making process. Back Pain Course/Dx - Course Course Of Treatment: Patient complains of tailbone pain 3 days. Pain with sitting and lying down flat on his back. Denies trauma, known injury, history of same. The states he has a history of cyst in the area 9 years ago. Denies fever, cough, sore throat, CP, SOB, N/V/D, abdominal pain, change in urine, change in BM, imbalance, loss of sensation or function in bilateral lower extremities. Medical history is none. Vital signs within normal limits. X- ray of coccyx negative for fracture. - Diagnoses Provider Diagnoses: Coccygeal pain Discharge ED - Sign-Out/Discharge Documenting (check all that apply): Patient Departure - Discharge Plan Condition: Stable Disposition: HOME Patient Education Materials: Coccyx Injury (ED) Referrals: Tyson Gar DO [Primary Care Provider] - Additional Instructions: Alternate ibuprofen 600 mg with Tylenol 650 mg every 3 hours for pain over the next couple days. Try to avoid activities and positions that cause further irritation. Follow-up with primary care. Return to the ED for any new or worsening symptoms. - Billing Disposition and Condition Condition: STABLE Disposition: Home
[2019-08-11] MEDS ORDERED: Ibuprofen TAB* 600 MG PO ONE (00:46)
[2019-08-11 01:35] VITALS: BP 131/98
== END 2019-08-11 01:37 | disposition home or self-care (01) ==
LOC: ED 22:37
DX: M53.3 Sacrococcygeal disorders, not elsewhere classified (principal); F17.210 Nicotine dependence, cigarettes, uncomplicated; K21.9 Gastro-esophageal reflux disease without esophagitis; Z88.0 Allergy status to penicillin
CPT/HCPCS: 72220; 99282

== ENCOUNTER 2019-09-07 15:25 | Emergency (ER) | payer OTHER ==
[2019-09-07 15:34] VITALS: BP 142/85
--- NOTE | 2019-09-07 17:26 | UC ---
Respiratory Complaint HPI - HPI Summary HPI Summary: 2 DAYS OF COUGH, CONGESTION, FATIGUE. NO FEVER, N/V. NO FLU SHOT THIS SEASON. - History of Current Complaint Chief Complaint: UCGeneralIllness Stated Complaint: SORE THROAT, COUGH Time Seen by Provider: 09/07/19 15:42 Hx Obtained From: Patient, Family/Acid Strength Inspector - Onset/Duration: Gradual Onset, Lasting Days, Still Present Timing: Constant Severity Initially: Moderate Severity Currently: Moderate Pain Intensity: 7 Pain Scale Used: 0-10 Numeric Character: Cough: Nonproductive Aggravating Factors: Nothing Alleviating Factors: Nothing Associated Signs And Symptoms: Positive: URI, Nasal Congestion. Negative: Dyspnea, Fever, Chills, Wheezing - Allergies/Home Medications Allergies/Adverse Reactions: Allergies Allergy/AdvReac Type Severity Reaction Status Date / Time ondansetron Allergy Intermediate Vomiting Verified 09/07/19 15:34 amoxicillin Allergy Nausea And Verified 09/07/19 15:34 Vomiting bee venom protein (honey bee) Allergy Anaphylatic Verified 09/07/19 15:35 Shock codeine Allergy Nausea And Verified 09/07/19 15:34 Vomiting Penicillins Allergy Nausea And Verified 09/07/19 15:34 Vomiting Home Medications: Home Medications Ibuprofen TAB* [Motrin TAB* 800 MG] 800 mg PO Q6H PRN 09/07/19 [History Confirmed 09/07/19] PMH/Surg Hx/FS Hx/Imm Hx Respiratory History: Asthma - Surgical History Surgical History: Yes Surgery Procedure, Year, and Place: FULL MOUTH EXTRACTION, rt knee surgery 2016 - Family History Known Family History: Positive: Cardiac Disease, Diabetes, Respiratory Disease - copd/ASTHMA - Social History Alcohol Use: Rare Substance Use Type: None Substance Use Comment - Amount & Last Used: pt denies using Smoking Status (MU): Heavy Every Day Tobacco Smoker Type: Cigarettes Amount Used/How Often: 1 ppd Length of Time of Smoking/Using Tobacco: 16 years Have You Smoked in the Last Year: Yes Household Exposure Type: Cigarettes Review of Systems All Other Systems Reviewed And Are Negative: Yes Constitutional: Positive: Fatigue ENT: Positive: Nasal Discharge Respiratory: Positive: Cough Cardiovascular: Positive: Negative Gastrointestinal: Positive: Negative Physical Exam Triage Information Reviewed: Yes Appearance: Well-Appearing, No Pain Distress, Well-Nourished Vital Signs: Initial Vital Signs Temp 99.5 F 09/07/19 15:30 Pulse 76 12/21/19 15:30 Resp 16 09/07/19 15:30 BP 142/85 09/07/19 15:30 Pulse Ox 100 09/07/19 15:30 Vital Signs Reviewed: Yes Eyes: Positive: Conjunctiva Clear ENT: Positive: Hearing grossly normal, Pharynx normal, TMs normal Neck: Positive: Supple, Nontender, No Lymphadenopathy Respiratory Exam: Normal Cardiovascular Exam: Normal Abdomen Description: Positive: Soft Musculoskeletal: Positive: No Edema Neurological: Positive: Alert Psychological: Positive: Age Appropriate Behavior Skin: Negative: Rashes Respiratory Course/Dx - Course Course Of Treatment: LIKELY VIRALLY MEDIATED SYMPTOMS. NO INDICATION FOR ANTIBIOTICS AT PRESENT. REST, HYDRATE, OTC MEDS. GIVEN PATIENT'S HISTORY OF ASTHMA WILL GIVE A SHORT COURSE OF PREDNISONE AND HAVE ENCOURAGED HIM TO USE HIS ALBUTEROL INHALER PRESCRIBED. FOLLOW-UP IF NEEDED. - Differential Dx/Diagnosis Provider Diagnosis: Acute URI Discharge ED - Sign-Out/Discharge Documenting (check all that apply): Patient Departure All imaging exams completed and their final reports reviewed: No Studies - Discharge Plan Condition: Stable Disposition: HOME Prescriptions: predniSONE TAB* [Deltasone 20 MG TAB*] 40 mg PO DAILY #10 tab Patient Education Materials: Upper Respiratory Infection (ED) Referrals: Tyson Gar DO [Primary Care Provider] - If Needed Additional Instructions: YOUR SYMPTOMS ARE LIKELY VIRALLY MEDIATED AND SHOULD RESOLVE ON THEIR OWN WITH TIME. NO INDICATION FOR ANTIBIOTICS AT PRESENT. REST, HYDRATE, OTC MEDS NEEDED. WILL TREAT WITH PREDNISONE TO HELP WITH AIRWAY INFLAMMATION. USE YOUR ALBUTEROL PRESCRIBED. SEEK FOLLOW-UP IF YOU ARE NOT IMPROVING OVER THE NEXT 1 -2 WEEKS. USE OTC AFRIN FOR NASAL CONGESTION. 2 SPRAYS IN EACH NOSTRIL TWICE DAILY NEEDED. DO NOT USE FOR MORE THAN 3-4 DAYS IN A ROW TO PREVENT DEVELOPING REBOUND CONGESTION. - Billing Disposition and Condition Condition: STABLE Disposition: Home
== END 2019-09-07 16:16 | disposition home or self-care (01) ==
LOC: UCEAST 15:25
DX: J06.9 Acute upper respiratory infection, unspecified (principal); J45.909 Unspecified asthma, uncomplicated; F17.210 Nicotine dependence, cigarettes, uncomplicated; Z88.0 Allergy status to penicillin; Z88.5 Allergy status to narcotic agent; Z91.030 Bee allergy status; Z88.8 Allergy status to other drugs, medicaments and biological substances
CPT/HCPCS: 99212; G0463

== ENCOUNTER 2019-09-08 02:14 | Emergency (ER) | payer OTHER ==
--- NOTE | 2019-09-08 02:38 | ED ---
Respiratory - HPI Summary HPI Summary: Patient is a 34 y/o M w/ Hx of PNA and asthma who presents to [facility] with chief complaint of SOB. He additionally endorses rhinorrhea, chest congestion, and sore throat. Sx initially onset 09/05/19. Patient states that it "feels like my lungs are filling up with fluid". Patient was evaluated at [facility], patient was placed on prednisone. He notes that he has taken 4 bendaryl in the past four hours. Patient is concerned that he has a recurrence of PNA. He is a current smoker. On triage, associated severity is rated 6/10, nothing is noted to aggravate/alleviate Sx. Home medications and allergies are reviewed. - History of Current Complaint Chief Complaint: EDUpperRespComplaint Stated Complaint: FLUID IN LUNGS PER PT Time Seen by Provider: 09/08/19 02:31 Hx Obtained From: Patient Onset/Duration: Lasting Days, Still Present Timing: Constant Current Severity: Moderate Pain Intensity: 6 Aggravating Factor(s): Nothing Alleviating Factor(s): Nothing Associated Signs and Symptoms: SOB, Nasal Congestion - Allergy/Home Medications Allergies/Adverse Reactions: Allergies Allergy/AdvReac Type Severity Reaction Status Date / Time ondansetron Allergy Intermediate Vomiting Verified 09/07/19 15:34 amoxicillin Allergy Nausea And Verified 09/07/19 15:34 Vomiting bee venom protein (honey bee) Allergy Anaphylatic Verified 09/07/19 15:35 Shock codeine Allergy Nausea And Verified 09/07/19 15:34 Vomiting Penicillins Allergy Nausea And Verified 09/07/19 15:34 Vomiting PMH/Surg Hx/FS Hx/Imm Hx Endocrine/Hematology History: Denies: Hx Diabetes, Hx Systemic Lupus Erythematosus, Hx Thyroid Disease Cardiovascular History: Reports: Other Cardiovascular Problems/Disorders - HISTORY OF TORN CHEST MUSCLE SEVERAL YEARS AGO-NO PROBLEMS NOW Denies: Hx Congestive Heart Failure, Hx Hypertension, Hx Pacemaker/ICD Respiratory History: Reports: Hx Asthma - PRN INHALER, Hx Pneumonia, Hx Sleep Apnea - POSSIBLE- NOT DIAGNOSED Denies: Hx Chronic Obstructive Pulmonary Disease (COPD) GI History: Reports: Hx Gastroesophageal Reflux Disease - NO MEDICATION FOR Denies: Hx Ulcer, Other GI Disorders History: Denies: Hx Dialysis, Hx Renal Disease Musculoskeletal History: Reports: Hx Scoliosis Denies: Hx Rheumatoid Arthritis Sensory History: Reports: Hx Contacts or Glasses - GLASSES Denies: Hx Deafness, Hx Hearing Aid Opthamlomology History: Reports: Hx Contacts or Glasses - GLASSES Neurological History: Reports: Other Neuro Impairments/Disorders - slipoped disc low bacjk Psychiatric History: Denies: Hx Panic Disorder - Cancer History Hx Chemotherapy: No - Surgical History Surgery Procedure, Year, and Place: FULL MOUTH EXTRACTION, rt knee surgery 2016 Hx Anesthesia Reactions: No - Immunization History Date of Tetanus Vaccine: utd Date of Influenza Vaccine: none Infectious Disease History: No Infectious Disease History: Denies: Hx Clostridium Difficile, Hx Hepatitis, Hx Human Immunodeficiency Virus (HIV), Hx of Known/Suspected MRSA, Hx Shingles, Hx Tuberculosis, Hx Known/ Suspected VRE, Hx Known/Suspected VRSA, History Other Infectious Disease, Traveled Outside the [place] in Last 30 Days - Family History Known Family History: Positive: Cardiac Disease, Diabetes, Respiratory Disease - copd/ASTHMA - Social History Alcohol Use: Rare Hx Substance Use: Yes Substance Use Type: Reports: None Substance Use Comment - Amount & Last Used: pt denies using Hx Tobacco Use: Yes Smoking Status (MU): Heavy Every Day Tobacco Smoker Type: Cigarettes Amount Used/How Often: 1 ppd Length of Time of Smoking/Using Tobacco: 16 years Have You Smoked in the Last Year: Yes Review of Systems Positive: Sore Throat, Nasal Discharge Respiratory: Other - positive - chest congestion Positive: Shortness Of Breath All Other Systems Reviewed And Are Negative: Yes Physical Exam - Summary Physical Exam Summary: Appearance: Well-appearing, Well-nourished, lying in bed comfortably Skin: Warm, dry, no obvious rash Eyes: sclera anicteric, no conjunctival pallor ENT: mucous membranes moist, pharynx appears normal; nasal discharge is noted. Neck: Supple, nontender Respiratory: Clear to auscultation, no signs of respiratory distress Cardiovascular: Normal S1, S2. No murmurs. Normal distal pulses in tibial and radial bilaterally. Abdomen: Soft, nontender, normal active bowel sounds present Musculoskeletal: Normal, Strength/ROM Intact Neurological: A&Ox3, awake and alert, mentation is normal, speech is fluent and appropriate Psychiatric: affect is normal, does not appear anxious or depressed Triage Information Reviewed: Yes Vital Signs On Initial Exam: Initial Vitals Temp Pulse Resp BP Pulse Ox 99.2 F 101 20 147/93 98 09/08/19 02:18 09/08/19 02:18 09/08/19 02:18 09/08/19 02:18 09/08/19 02:18 Vital Signs Reviewed: Yes Procedures - Sedation Patient Received Moderate/Deep Sedation with Procedure: No Diagnostics - Vital Signs Vital Signs Temp Pulse Resp BP Pulse Ox 09/08/19 02:18 99.2 F 101 20 147/93 98 - Laboratory Lab Statement: Any lab studies that have been ordered have been reviewed, and results considered in the medical decision making process. - Radiology CXR Radiology Interpretation Completed By: ED Physician Summary of Radiographic Findings: CXR showed no acute process, pending official report. Disposition - Course Course Of Treatment: Patient is a 34 y/o M w/ Hx of PNA and asthma who presents to [facility] with chief complaint of SOB. He additionally endorses rhinorrhea, chest congestion, and sore throat. Sx initially onset 09/05/19. Patient states that it "feels like my lungs are filling up with fluid". Patient was evaluated at [facility], patient was placed on prednisone. He notes that he has taken 4 bendaryl in the past four hours. Patient is concerned that he has a recurrence of PNA. He is a current smoker. On physical exam, nasal discharge is noted. Lungs are clear to auscultation. CXR showed no acute process. Patient was discharged to home and will follow up with PCP. - Diagnoses Provider Diagnoses: Acute bronchitis Discharge ED - Sign-Out/Discharge Documenting (check all that apply): Patient Departure - discharge - Discharge Plan Condition: Good Disposition: HOME Patient Education Materials: Acute Bronchitis (ED) Referrals: Tyson Gar DO [Primary Care Provider] - Additional Instructions: The medications that were prescribed for you yesterday are appropriate and you should continue taking them. The chest xray done tonight did not show any sign of pneumonia, and your vital signs, including pulse oximetry, are within normal limits. - Billing Disposition and Condition Condition: GOOD Disposition: Home - Attestation Statements Document Initiated by Scribe: Yes Documenting Scribe: ETHAN MAN Provider For Whom Janie is Documenting (Include Credential): PACO KAPADIA MD Scribe Attestation: ETHAN Abreu scribed for PACO KAPADIA MD on 09/08/19 at 0627. Scribe Documentation Reviewed: Yes Provider Attestation: The documentation as recorded by the scribe, ETHAN MAN accurately reflects the service I personally performed and the decisions made by me, PACO KAPADIA MD Status of Janie Document: Viewed
[2019-09-08 03:28] VITALS: BP 119/83
== END 2019-09-08 03:29 | disposition home or self-care (01) ==
LOC: ED 02:14
DX: J20.9 Acute bronchitis, unspecified (principal); F17.210 Nicotine dependence, cigarettes, uncomplicated; Z88.5 Allergy status to narcotic agent; Z88.0 Allergy status to penicillin; Z88.8 Allergy status to other drugs, medicaments and biological substances
CPT/HCPCS: 71046; 99282